=== PATIENT | female | born 1965 | race American Indian/Alaskan Native ===

== ENCOUNTER 2017-02-01 11:25 | Observation (INO) | payer MEDICARE ==
[2017-02-01 12:33] LABS: Basophils % (Auto) 0.4 % (0.0-1.8); Eosinophils % (Auto) 1.5 % (0.0-4.3); Hemoglobin 12.2 gm/dl (10.1-14.3); Mean Corpuscular HGB Conc 31 % (30-34); Mean Corpuscular Volume 76 fl (79-97); Platelet Count 240 K/mm3 (140-440); Red Blood Count 5.17 M/mm3 (3.65-5.03); Red Cell Distribution Width 16.4 % (13.2-15.2); White Blood Count 6.2 K/mm3 (4.5-11.0)
[2017-02-01 12:35] LABS: Mean Corpuscular Hemoglobin 24 pg (28-32)
[2017-02-01 13:02] LABS: Anion Gap 18 mmol/L; Blood Urea Nitrogen 18 mg/dL (7-17); Calcium 9.6 mg/dL (8.4-10.2); Carbon Dioxide 26 mmol/L (22-30); Chloride 100.2 mmol/L (98-107); Glucose 193 mg/dL (65-100); Potassium 4.1 mmol/L (3.6-5.0); Sodium 140 mmol/L (137-145)
[2017-02-01] MEDS ORDERED: ZOFRAN IV ONE ×2 (18:18→19:08)
[2017-02-01] MEDS ORDERED: MORPHINE IV ONE ×2 (18:19→19:08)
[2017-02-01] MEDS ORDERED: BABY ASPIRIN PO ONE (19:25)
--- NOTE | 2017-02-01 19:25 | Emergency Department Report ---
HPI - General Chief Complaint: Chest Pain Time Seen by Provider: 02/01/17 17:55 - HPI HPI: The patient is a 51-year-old female with a history of CHF, who presents for evaluation of chest pain. The patient reports 2 days of constant left-sided chest pain, pressure-like in quality, currently 8/10 in severity. The patient denies fever, neck pain, parasthesias, dyspnea, cough, hemoptysis, palpitations , dizziness, syncope, unilateral leg swelling, calf muscle pain. Patient also denies cocaine or other stimulant use, history of DVT or PE, recent immobilization, or history of cancer. ED Past Medical Hx - Past Medical History Hx Hypertension: Yes Hx CVA: Yes Hx Heart Attack/AMI: Yes Hx Congestive Heart Failure: Yes Hx Diabetes: Yes (I) Hx Arthritis: Yes Hx Seizures: Yes (childhood) Hx Asthma: Yes Hx COPD: No Additional medical history: Anemia. Fibroid Tumor. Obesity - Surgical History Hx Pacemaker: Yes (Defibrillator placed in left chest under skin flap.) Additional Surgical History: x 3, tubal ligation in 1985. Surgery on L.Wrist - 1993. Pacemaker, defibrilator, Hysterectomy and Fibroid removal in 2014 removal. - Social History Smoking Status: Never Smoker Substance Use Type: Alcohol - Medications Home Medications: Home Medications Medication Instructions Recorded Confirmed Last Taken Type Amlodipine Besylate 10 mg PO DAILY 09/16/13 02/01/17 08/11/15 10:46 History Carvedilol 25 mg PO BID 09/16/13 02/01/17 08/09/15 History Clopidogrel Bisulfate [Clopidogrel] 75 mg PO DAILY 09/16/13 02/01/17 08/07/15 History Digoxin 250 mcg PO DAILY 09/16/13 02/01/17 08/09/15 History Furosemide 40 mg PO DAILY 09/16/13 02/01/17 08/09/15 History Lisinopril 40 mg PO DAILY 09/16/13 02/01/17 08/11/15 10:47 History Simvastatin 40 mg PO QHS 09/16/13 02/01/17 08/08/15 History Fluticasone Propionate [Flonase] 16 gm NS QDAY #1 spray.susp 12/23/13 02/01/17 02/17/14 Rx Pantoprazole [Protonix TAB] 20 mg PO QDAY #5 tablet. 01/09/14 02/01/17 2 Weeks Ago Rx Docusate Sodium [Colace CAP] 100 mg PO BID PRN 07/09/15 02/01/17 Unknown History Ezetimibe [Zetia] 10 mg PO QDAY 07/09/15 02/01/17 Unknown History Ferrous Sulfate [Feosol 325 MG tab] 325 mg PO QDAY 07/09/15 02/01/17 Unknown History Gabapentin [Neurontin] 300 mg PO BID 07/09/15 02/01/17 08/09/15 History Potassium Chloride [Klor-Con M10] 20 meq PO QDAY 07/09/15 02/01/17 08/09/15 History metFORMIN [Glucophage] 850 mg PO BID 07/09/15 02/01/17 2 Days Ago History Loratadine [Claritin] 10 mg PO Q48HR 08/11/15 02/01/17 08/07/15 History traMADol [Ultram 50 MG tab] 50 mg PO Q4HR PRN #20 tablet 08/05/16 02/01/17 Unknown Rx traMADol [Ultram 50 MG tab] 50 mg PO Q6HR PRN #20 tablet 08/25/16 02/01/17 Unknown Rx Insulin Glargine,Hum.rec.anlog 40 units SQ QHS 30 Days 12/18/16 02/01/17 Rx [Lantus Solostar] Nitroglycerin [Nitrostat] 0.4 mg SL PRN PRN 30 Days 12/18/16 02/01/17 08/05/15 Rx ED Review of Systems ROS: Stated complaint: CHEST PAIN/RT SIDE HIP PAIN Other details as noted in HPI Constitutional: denies: fever ENT: denies: throat or neck pain Respiratory: denies: cough, shortness of breath Cardiovascular: reports chest pain Endocrine: denies unexplained weight loss or gain Gastrointestinal: denies abdominal pain, nausea Genitourinary: denies: dysuria Musculoskeletal: denies: leg swelling Skin: denies: rash Neurological: denies: headache Hematological/Lymphatic: denies: easy bleeding or easy bruising Psych: denies sadness or hopelessness Physical Exam - Physical Exam Vital Signs: Vital Signs 02/01/17 02/01/17 02/01/17 11:38 16:47 18:20 Temperature 98.9 F 98.6 F Pulse Rate 85 90 82 Respiratory 20 20 16 Rate Blood Pressure 156/97 177/99 Blood Pressure 156/82 [Left] O2 Sat by Pulse 98 95 Oximetry Physical Exam: General: well-nourished, well-developed, no acute distress Head: Normocephalic, atraumatic Eyes: normal sclera ENT: Mucous membranes are pale and dry Neck: No neck stiffness, no cervical adenopathy Respiratory: Breath sounds equal bilaterally, no wheezing, rales, or rhonchi Cardio: S1 and S2 present, no murmurs, rubs, gallops, capillary refill is delayed Abdomen: Normoactive bowel sounds, soft abdomen, no tenderness Chest WALL/Back: No tenderness to palpation of the chest wall, no CVA tenderness with percussion Musc: No pitting edema Skin: No rash Neuro: no facial drooping, normal speech Psych: Normal affect ED Course Vital Signs 02/01/17 02/01/17 02/01/17 11:38 16:47 18:20 Temperature 98.9 F 98.6 F Pulse Rate 85 90 82 Respiratory 20 20 16 Rate Blood Pressure 156/97 177/99 Blood Pressure 156/82 [Left] O2 Sat by Pulse 98 95 Oximetry ED Medical Decision Making - Lab Data Result diagrams: 02/01/17 11:48 02/01/17 11:48 - Medical Decision Making The patient was seen and examined by myself. The patient is placed on a playground monitor and continuous pulse ox. On initial evaluation, the patient was found to be in no distress. EKG was negative for findings suggestive of acute cardiac infarct. The patient is given IV morphine for her pain. Labs and imaging are obtained. Chest x-ray is negative for pneumothorax, focal consolidation, pulmonary vascular congestion, pleural effusion, or other obvious acute cardiopulmonary disease process. Lab results were non-revealing including negative troponin, WBC, hemoglobin, hematocrit, electrolytes, renal function. Medical records are reviewed and revealed that the patient received a stress test positive for mild inferior lateral ischemia recently. The patient was reevaluated and reported that their symptoms were improved. As the patient has chest pain and risk factors for development of acute coronary event, the patient will be admitted for close cardiopulmonary monitoring, serial troponins, and evaluation by cardiology. The physician on-call was contacted. They presented to the emergency department and evaluated the patient. They agreed to admit the patient. The ED admit order was placed. The patient was admitted in guarded condition. Critical care attestation.: If time is entered above; I have spent that time in minutes in the direct care of this critically ill patient, excluding procedure time. ED Disposition Clinical Impression: Acute chest pain Disposition: OP ADMITTED IP TO THIS HOSP Is pt being admited?: Yes Does the pt Need Aspirin: Yes Condition: Stable Instructions: Chest Pain (ED) Referrals: BRIAN GALINDO MD [Primary Care Provider] - 3-5 Days Time of Disposition: 19:24
[2017-02-01] MEDS ORDERED: PROVENTIL IH PRN (23:10)
[2017-02-01] MEDS ORDERED: DULCOLAX PR PRN (23:10)
[2017-02-01] MEDS ORDERED: MILK OF MAGNESIA PO PRN (23:10)
[2017-02-01] MEDS ORDERED: TYLENOL PO PRN (23:10)
[2017-02-01] MEDS ORDERED: D50W (25GM) IV PRN (23:10)
[2017-02-01] MEDS ORDERED: MORPHINE IV PRN (23:10)
[2017-02-01] MEDS ORDERED: ZOFRAN IV PRN (23:10)
--- NOTE | 2017-02-02 00:35 | History and Physical Report ---
History of Present Illness Date of examination: 02/02/17 Date of admission: 02/01/17 23:10 Chief complaint: Constant left-sided nonexertional chest pain for 2 days History of present illness: patient is a 51-year-old AA female with a history of CHF,/ CMP s/p AICD and diabetes on insulin, who presents for evaluation of chest pain. The patient reports 2 days of constant left-sided chest pain, pressure-like in quality, currently 8/10 in severity. It extends to the left side of the neck and nonexertional Denies any palpitations syncope or dizziness or nausea. HEENT is described as stabbing sharp pain followed by dull aching pain. She apparently had a stress thallium by [facility] 5 weeks ago and was found to have mild inferolateral ischemia, but no further workup was done The patient denies fever, neck pain, parasthesias, dyspnea, cough, hemoptysis, palpitations, dizziness, syncope, unilateral leg swelling, calf muscle pain. Patient also denies cocaine or other stimulant use, history of DVT or PE, recent immobilization, or history of cancer. Past History Past Medical History: arthritis, CAD, diabetes, heart failure (status post AICD) , hypertension, hyperlipidemia Past Surgical History: hysterectomy, Other (AICD placement) Social history: no significant social history Family history: no significant family history Medications and Allergies Allergies Allergy/AdvReac Type Severity Reaction Status Date / Time shellfish derived Allergy anaphalyxis Verified 02/18/14 17:45 codeine AdvReac Vomiting Verified 02/18/14 17:45 Home Medications Medication Instructions Recorded Confirmed Last Taken Type Amlodipine Besylate 10 mg PO DAILY 09/16/13 02/01/17 08/11/15 10:46 History Carvedilol 25 mg PO BID 09/16/13 02/01/17 08/09/15 History Clopidogrel Bisulfate [Clopidogrel] 75 mg PO DAILY 09/16/13 02/01/17 08/07/15 History Digoxin 250 mcg PO DAILY 09/16/13 02/01/17 08/09/15 History Furosemide 40 mg PO DAILY 09/16/13 02/01/17 08/09/15 History Lisinopril 40 mg PO DAILY 09/16/13 02/01/17 08/11/15 10:47 History Simvastatin 40 mg PO QHS 1202/01/17 08/08/15 History Fluticasone Propionate [Flonase] 16 gm NS QDAY #1 spray.susp 12/23/13 02/01/17 02/17/14 Rx Pantoprazole [Protonix TAB] 20 mg PO QDAY #5 tablet. 01/09/14 02/01/17 2 Weeks Ago Rx Docusate Sodium [Colace CAP] 100 mg PO BID PRN 07/09/15 02/01/17 Unknown History Ezetimibe [Zetia] 10 mg PO QDAY 07/09/15 02/01/17 Unknown History Ferrous Sulfate [Feosol 325 MG tab] 325 mg PO QDAY 07/09/15 02/01/17 Unknown History Gabapentin [Neurontin] 300 mg PO BID 07/09/15 02/01/17 08/09/15 History Potassium Chloride [Klor-Con M10] 20 meq PO QDAY 07/09/15 02/01/17 08/09/15 History metFORMIN [Glucophage] 850 mg PO BID 07/09/15 02/01/17 2 Days Ago History Loratadine [Claritin] 10 mg PO Q48HR 08/11/15 02/01/17 08/07/15 History traMADol [Ultram 50 MG tab] 50 mg PO Q4HR PRN #20 tablet 08/05/16 02/01/17 Unknown Rx traMADol [Ultram 50 MG tab] 50 mg PO Q6HR PRN #20 tablet 08/25/16 02/01/17 Unknown Rx Insulin Glargine,Hum.rec.anlog 40 units SQ QHS 30 Days 12/18/16 02/01/17 Rx [Lantus Solostar] Nitroglycerin [Nitrostat] 0.4 mg SL PRN PRN 30 Days 12/18/16 02/01/17 08/05/15 Rx Active Meds: Active Medications Acetaminophen (Tylenol) 650 mg PO Q4H PRN PRN Reason: Pain MILD(1-3)/Fever >100.5/[place] Albuterol (Proventil) 2.5 mg IH Q6HRT PRN PRN Reason: Shortness Of Breath Bisacodyl (Dulcolax) 10 mg HI QDAY PRN PRN Reason: Constipation unrelieved by MOM Carvedilol (Coreg) 25 mg PO BID [facility] Clopidogrel Bisulfate (Plavix) 75 mg PO DAILY [facility] Dextrose (D50w (25gm)) 50 ml IV PRN PRN PRN Reason: Hypoglycemia Digoxin (Lanoxin) 0.25 mg PO 1700 [facility] Furosemide (Lasix) 40 mg PO DAILY [facility] Gabapentin (Neurontin) 300 mg PO BID [facility] Heparin Sodium (Porcine) (Heparin) 5,000 unit SUB-Q Q8HR [facility] Insulin Aspart (Novolog) 0 units SUB-Q ACHS [facility] PRN Reason: Protocol Insulin Detemir (Levemir) 25 units SUB-Q QHS [facility] Lisinopril (Zestril) 40 mg PO DAILY [facility] Magnesium Hydroxide (Milk Of Magnesia) 30 ml PO Q4H PRN PRN Reason: Constipation Morphine Sulfate (Morphine) 2 mg IV Q4H PRN PRN Reason: Pain, Moderate (4-6) Ondansetron HCl (Zofran) 4 mg IV Q8H PRN PRN Reason: N/V unrelieved by [place] Pantoprazole Sodium (Protonix) 20 mg PO QDAY [facility] Simvastatin (Zocor) 40 mg PO QHS [facility] Review of Systems Constitutional: no weight loss, no weight gain, no fever, no chills, no weakness Ears, nose, mouth and throat: no ear pain, no ear discharge, no sore throat, no headache Cardiovascular: chest pain (stated above in the history of present illness), no orthopnea, no palpitations, no syncope, no lightheadedness, no shortness of breath Gastrointestinal: nausea, no abdominal pain, no vomiting, no diarrhea, no constipation, no melena Genitourinary Female: dysuria, urinary frequency Menstruation: postmenopausal Rectal: no pain Musculoskeletal: arthritis (in the knee joints), no neck pain, no low back pain Integumentary: no rash Neurological: no head injury, no seizures, no syncope Psychiatric: no anxiety, no depression Endocrine: no polyphagia, no excessive thirst, no polydipsia, no polyuria Exam - Constitutional Vitals: Temp Pulse Resp BP Pulse Ox 98.6 F 69 13 127/74 95 02/01/17 16:47 02/01/17 21:30 02/01/17 21:30 02/01/17 21:30 04/21/17 21:30 General appearance: Present: no acute distress, well-nourished - EENT Eyes: Present: PERRL, EOM intact ENT: hearing intact, clear oral mucosa, no thrush - Neck Neck: Present: supple, normal ROM. Absent: masses or JVD - Respiratory Respiratory effort: normal Respiratory: bilateral: CTA - Cardiovascular Rhythm: regular Heart Sounds: Present: S1 & S2 - Extremities Extremities: No edema - Abdominal General gastrointestinal: Present: soft, non-tender. Absent: hepatomegaly, splenomegaly - Rectal Rectal Exam: deferred - Integumentary Integumentary: Present: clear - Musculoskeletal Musculoskeletal: strength equal bilaterally - Neurologic Neurologic: no focal deficits, moves all extremities Results - Labs CBC & Chem 7: 02/01/17 11:48 02/01/17 11:48 Assessment and Plan - Patient Problems (1) Acute chest pain Current Visit: Yes Status: Acute Plan to address problem: 3 sets of troponin enzymes were negative for [place] EKG showed a heart rate of 79 bpm LVH by voltage criteria with Q in inferior leads Cardiology consult with [facility] was requested (2) CAD (coronary artery disease) Current Visit: No Status: Chronic Qualifiers: Coronary Disease-Associated Artery/Lesion type: C [place] vs. transplanted heart: N Associated angina: A Plan to address problem: Continue beta katherine (3) Cardiomyopathy Current Visit: No Status: Chronic Plan to address problem: Continue CONG inhibitor and diuretic (4) HTN (hypertension), benign Current Visit: No Status: Chronic Plan to address problem: Well-controlled Continue Home medications (5) Hyperlipemia Current Visit: No Status: Chronic Qualifiers: Hyperlipidemia type: H Plan to address problem: Continue statin (6) Type 2 diabetes mellitus Current Visit: No Status: Chronic Qualifiers: Diabetes mellitus complication status: D Diabetes mellitus complication detail: D Diabetic retinopathy severity: D Proliferative retinopathy type: P Diabetes mellitus macular edema: D Diabetes mellitus ferry terminal agent insulin use : D Laterality: L Chronic kidney disease stage: C Plan to address problem: Monitor blood sugars with sliding scale coverage Continue basal insulin but at a reduced dose
[2017-02-02] MEDS: HEPARIN SUB-Q SCH ×2 (05:14→13:25)
[2017-02-02] MEDS ORDERED: NOVOLOG SUB-Q SCH (07:30)
[2017-02-02 08:51] LABS: Bilirubin,Urine NEG (Negative); Blood,Urine NEG (Negative); Ketones,Urine NEG (Negative); Leukocyte Esterase,Urine NEG (Negative); Mucus,Urine FEW /HPF; Nitrite,Urine NEG (Negative); Protein,Urine <15 mg/dL mg/dL (Negative); RBC,Urine < 1.0 /HPF (0.0-6.0); Urobilinogen,Urine < 2.0 mg/dL (<2.0); WBC,Urine < 1.0 /HPF (0.0-6.0)
--- NOTE | 2017-02-02 09:49 | XRay Report ---
Chest 2 views: Compared to 12/17/16. History: Shortness of breath/chest pain. Findings: Cardiomegaly. Trachea is midline. Stable pacemaker. No consolidation, pneumothorax or pleural effusion. Impression: No acute cardiopulmonary findings.
[2017-02-02] MEDS ORDERED: PLAVIX PO SCH (10:00)
[2017-02-02] MEDS ORDERED: LASIX PO SCH (10:00)
[2017-02-02] MEDS ORDERED: NEURONTIN PO SCH (10:00)
[2017-02-02] MEDS ORDERED: PROTONIX PO SCH (10:00)
[2017-02-02] MEDS ORDERED: COREG PO SCH (10:00)
[2017-02-02] MEDS ORDERED: ZESTRIL PO SCH (10:00)
--- NOTE | 2017-02-02 10:09 | Consultation ---
History of Present Illness Consult date: 02/02/17 Requesting physician: EMMA MATHIAS Consult reason: chest pain History of present illness: This is a 51-year-old female with history of nonischemic cardiomyopathy EF 1520%, hypertension, status post AICD, patient has multiple hospital visits in the past. Patient states compliance with medication. Patient states for last 2 days having sharp left-sided chest pain with no radiation and patient shortness of breath has been chronic patient's baseline ER cart classification is 2-3. Patient is able lie down flat in the bed this a.m. Patient states chest pain is improved with anti-inflammatory's. Patient denies any syncope or palpitations. Patient denies any melanoma fever or chills but cough but no sputum production and no fever. Past History Past Medical History: arthritis, CAD, diabetes, heart failure (status post AICD , EF 1520%), hypertension, hyperlipidemia Past Surgical History: hysterectomy, Other (AICD placement) Social history: no significant social history Family history: no significant family history Medications and Allergies Allergies Allergy/AdvReac Type Severity Reaction Status Date / Time shellfish derived Allergy anaphalyxis Verified 02/18/14 17:45 codeine AdvReac Vomiting Verified 02/18/14 17:45 Home Medications Medication Instructions Recorded Confirmed Last Taken Type Amlodipine Besylate 10 mg PO DAILY 09/16/13 02/01/17 08/11/15 10:46 History Carvedilol 25 mg PO BID 09/16/13 02/01/17 08/09/15 History Clopidogrel Bisulfate [Clopidogrel] 75 mg PO DAILY 09/16/13 02/01/17 08/07/15 History Digoxin 250 mcg PO DAILY 09/16/13 02/01/17 08/09/15 History Furosemide 40 mg PO DAILY 09/16/13 02/01/17 08/09/15 History Lisinopril 40 mg PO DAILY 09/16/13 02/01/17 08/11/15 10:47 History Simvastatin 40 mg PO QHS 09/16/13 02/01/17 08/08/15 History Fluticasone Propionate [Flonase] 16 gm NS QDAY #1 spray.susp 12/23/13 02/01/17 02/17/14 Rx Pantoprazole [Protonix TAB] 20 mg PO QDAY #5 tablet. 01/09/14 02/01/17 2 Weeks Ago Rx Docusate Sodium [Colace CAP] 100 mg PO BID PRN 07/09/15 02/01/17 Unknown History Ezetimibe [Zetia] 10 mg PO QDAY 07/09/15 02/01/17 Unknown History Ferrous Sulfate [Feosol 325 MG tab] 325 mg PO QDAY 07/09/15 02/01/17 Unknown History Gabapentin [Neurontin] 300 mg PO BID 07/09/15 02/01/17 08/09/15 History Potassium Chloride [Klor-Con M10] 20 meq PO QDAY 07/09/15 02/01/17 08/09/15 History metFORMIN [Glucophage] 850 mg PO BID 07/09/15 02/01/17 2 Days Ago History Loratadine [Claritin] 10 mg PO Q48HR 08/11/15 02/01/17 08/07/15 History traMADol [Ultram 50 MG tab] 50 mg PO Q4HR PRN #20 tablet 08/05/16 02/01/17 Unknown Rx traMADol [Ultram 50 MG tab] 50 mg PO Q6HR PRN #20 tablet 08/25/16 02/01/17 Unknown Rx Insulin Glargine,Hum.rec.anlog 40 units SQ QHS 30 Days 12/18/16 02/01/17 Rx [Lantus Solostar] Nitroglycerin [Nitrostat] 0.4 mg SL PRN PRN 30 Days 12/18/16 02/01/17 08/05/15 Rx Active Meds: Active Medications Acetaminophen (Tylenol) 650 mg PO Q4H PRN PRN Reason: Pain MILD(1-3)/Fever >100.5/[place] Albuterol (Proventil) 2.5 mg IH Q6HRT PRN PRN Reason: Shortness Of Breath Bisacodyl (Dulcolax) 10 mg MD QDAY PRN PRN Reason: Constipation unrelieved by MOM Carvedilol (Coreg) 25 mg PO BID [facility] Clopidogrel Bisulfate (Plavix) 75 mg PO DAILY [facility] Dextrose (D50w (25gm)) 50 ml IV PRN PRN PRN Reason: Hypoglycemia Digoxin (Lanoxin) 0.25 mg PO 1700 [facility] Furosemide (Lasix) 40 mg PO DAILY [facility] Gabapentin (Neurontin) 300 mg PO BID [facility] Heparin Sodium (Porcine) (Heparin) 5,000 unit SUB-Q Q8HR [facility] Last Admin: 02/02/17 05:14 Dose: 5,000 unit Insulin Aspart (Novolog) 0 units SUB-Q ACHS [facility] PRN Reason: Protocol Insulin Detemir (Levemir) 25 units SUB-Q QHS [facility] Lisinopril (Zestril) 40 mg PO DAILY [facility] Magnesium Hydroxide (Milk Of Magnesia) 30 ml PO Q4H PRN PRN Reason: Constipation Morphine Sulfate (Morphine) 2 mg IV Q4H PRN PRN Reason: Pain, Moderate (4-6) Ondansetron HCl (Zofran) 4 mg IV Q8H PRN PRN Reason: N/V unrelieved by Reglan Pantoprazole Sodium (Protonix) 20 mg PO QDAY [facility] Simvastatin (Zocor) 40 mg PO QHS [facility] Review of Systems All systems: negative (HPI) Physical Examination Vital Signs Temp Pulse Resp BP Pulse Ox 98.9 F 85 20 156/97 98 02/01/17 11:38 02/01/17 11:38 02/01/17 11:38 02/01/17 11:38 02/01/17 11:38 General appearance: no acute distress, well-nourished HEENT: Positive: PERRL, Mucus Membranes Moist Neck: Positive: neck supple, trachea midline Cardiac: Positive: Reg Rate and Rhythm, S1/S2. Negative: Audible Murmur Lungs: Positive: clear to auscultation, Normal Breath Sounds Neuro: Positive: Grossly Intact Abdomen: Positive: Soft, Active Bowel Sounds. Negative: Tender, Distended Female genitourinary: deferred Skin: Positive: Clear Incision: Cardiac Cath Site Musculoskeletal: No Pain, Normal Range of Motion Extremities: Present: normal. Absent: edema Results 02/01/17 11:48 02/01/17 11:48 - Imaging and Cardiology Stress echo: other (12/2016 dilated LV no significant ischemia EF 20%) Echo: report reviewed (severe LV dysfunction EF 1520% mild tricuspid regurgitation with normal RVSP) Cardiac cath: report reviewed (2012 mild luminal guarantees EF 1520%) EKG interpretations - Telemetry EKG Rhythm: Sinus Rhythm (sinus rhythm with nonspecific ST-T's) Assessment and Plan Chest pain possible costochondritis NE ruled out Acute on chronic systolic heart failure compensated Nonischemic cardiomyopathy Morbid obesity Hypertension Hyperlipidemia Recommend continue home medications for systolic heart failure patient is currently compensated negative troponins patient may be discharged from cardiac vascular point of view and follow primary defensive line coach Dr. babcock
--- NOTE | 2017-02-02 10:12 | Discharge Summary ---
Providers - Providers Date of Admission: 02/01/17 23:10 Date of discharge: 02/02/17 Attending physician: KRYSTLE VIEYRA CONSULT: Cardiology Primary care physician: BRIAN GALINDO Hospitalization Reason for admission: chest pain Condition: Stable Pertinent studies: CXR Hospital course: Patient is a 51 year old morbidly obese AAF with chronic systolic heart failure due to nonischemic cardiomyopathy with EF 15-20%, status post AICD placement, HTN, DM, HPL, GERD, who presented with 2 day history of chest pain with no associated symptoms; shortness of breath was at baseline; she had a recent hospitalization with a negative stress test. Acute coronary syndrome was excluded based on EKG, serial cardiac enzymes. Cardiology was consulted and recommended to continue current management of heart failure. 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 Extensively counseled regarding importance of losing weight and lifestyle changes. Discharge diagnosis: 1. Chest pain - likely secondary to costochondritis 2. Acute on chronic systolic heart failure compensated 3. Nonischemic cardiomyopathy 4. Hypertension 5. Diabetes 6. Hyperlipidemia 7. GERD 8. Morbid obesity Disposition: DISCHARGED TO HOME OR SELFCARE Time spent for discharge: 35 min Core Measure Documentation - Palliative Care Palliative Care/ Comfort Measures: Not Applicable - Core Measures Any of the following diagnoses?: heart failure - Heart Failure Discharge Requirements CONG/ARB for LVSD if EF <40%: Yes Beta katherine at discharge: Yes Exam - Physical Exam Narrative exam: Patient seen and examined: - Constitutional Vitals: Temp Pulse Resp BP Pulse Ox 98.8 F 88 18 137/89 94 02/02/17 08:18 02/02/17 08:18 02/02/17 08:18 02/02/17 08:18 02/02/17 05:52 General appearance: Present: no acute distress, obese (morbidly) - EENT Eyes: Present: PERRL, EOM intact. Absent: scleral icterus, conjunctival injection - Neck Neck: Present: supple, normal ROM. Absent: masses or JVD - Respiratory Respiratory effort: normal Respiratory: bilateral: diminished (bibasilar), negative: rhonchi, wheezing - Cardiovascular Rhythm: regular Heart Sounds: Present: S1 & S2. Absent: systolic murmur - Extremities Extremities: no ischemia - Abdominal General gastrointestinal: Present: soft, non-tender, non-distended, normal bowel sounds, other (abd obese, protuberant) - Integumentary Integumentary: Present: warm, dry. Absent: jaundice, rash - Musculoskeletal Musculoskeletal: strength equal bilaterally - Psychiatric Psychiatric: cooperative - Neurologic Neurologic: CNII-XII intact, no focal deficits Plan Activity: advance as tolerated Diet: low cholesterol, low salt, diabetic Additional Instructions: Follow up with [facility] as scheduled Follow up with: BRIAN GALINDO MD [Primary Care Provider] - 3-5 Days Prescriptions: Ibuprofen [Motrin 600 MG tab] 600 mg PO Q8H #10 tablet
[2017-02-02 13:16] VITALS: BP 123/57
[2017-02-02] MEDS ORDERED: LANOXIN PO SCH (17:00)
[2017-02-02] MEDS ORDERED: LEVEMIR SUB-Q SCH (22:00)
[2017-02-02] MEDS ORDERED: ZOCOR PO SCH (22:00)
== END 2017-02-02 14:28 | disposition home or self-care (01) ==
LOC: ED 11:25 → 4A 23:10
PROVIDERS: ADMIT Internal Medicine; ATTEND Internal Medicine
DX: I25.10 Atherosclerotic heart disease of native coronary artery without angina pectoris (principal); I42.9 Cardiomyopathy, unspecified; I10 Essential (primary) hypertension; E78.5 Hyperlipidemia, unspecified; E11.9 Type 2 diabetes mellitus without complications; Z90.710 Acquired absence of both cervix and uterus
CPT/HCPCS: 36415; 71020; 80048; 81001; 81025; 82962; 84484; 85025; 93005; 93010; 96374; 96375; 96376; 99285; G0378; J1644; J2270; J2405

== ENCOUNTER 2017-04-05 09:29 | Emergency (ER) | payer MEDICARE ==
[2017-04-05 10:20] LABS: Basophils % (Auto) 0.8 % (0.0-1.8); Eosinophils % (Auto) 2.6 % (0.0-4.3); Hematocrit 39.2 % (30.3-42.9); Hemoglobin 12.4 gm/dl (10.1-14.3); Mean Corpuscular HGB Conc 32 % (30-34); Mean Corpuscular Volume 76 fl (79-97); Platelet Count 224 K/mm3 (140-440); Red Blood Count 5.19 M/mm3 (3.65-5.03); White Blood Count 5.1 K/mm3 (4.5-11.0)
[2017-04-05 10:39] LABS: Anion Gap 17 mmol/L; BUN/Creatinine Ratio 22.85; Blood Urea Nitrogen 16 mg/dL (7-17); Carbon Dioxide 24 mmol/L (22-30); Chloride 102.6 mmol/L (98-107); Glucose 224 mg/dL (65-100); Potassium 4.7 mmol/L (3.6-5.0); Sodium 139 mmol/L (137-145)
[2017-04-05 10:40] LABS: Mean Corpuscular Hemoglobin 24 pg (28-32)
[2017-04-05] MEDS ORDERED: TORADOL IM ONE (22:26)
--- NOTE | 2017-04-06 00:54 | XRay Report ---
FINAL REPORT EXAM: XR HIP 2-3V LT HISTORY: L hip/buttock pain s/p fall TECHNIQUE: AP view of pelvis and frog-leg lateral view of left hip. PRIORS: None. FINDINGS: Degenerative change in lower lumbar spine. Hip joint spaces maintained. No apparent fracture or dislocation. Soft tissues grossly unremarkable. IMPRESSION: 1. No acute osseous abnormality.
--- NOTE | 2017-04-06 00:57 | XRay Report ---
FINAL REPORT EXAM: XR RIBS UNI W PA CHEST 3 LT HISTORY: left rib pain s/p fall TECHNIQUE: Frontal chest x-ray. 2 views of left ribs. PRIORS: None. FINDINGS: Left subclavian transvenous cardiac device and mild cardiomegaly. Lungs are mildly hypoinflated, with increased interstitial markings centrally. No focal consolidation or apparent pneumothorax. No obvious or displaced left rib fractures. IMPRESSION: 1. Findings which may represent pulmonary venous hypertension. 2. No acute osseous abnormality.
--- NOTE | 2017-04-06 01:18 | Emergency Department Report ---
ED Fall HPI - General Chief Complaint: Chest Pain Stated Complaint: FALL/DEFIBRILLATOR Time Seen by Provider: 04/05/17 22:16 Source: patient, old records reviewed Mode of arrival: Ambulatory Limitations: No Limitations - History of Present Illness Initial Comments: 51-year-old female with a past medical history of multiple chronic conditions presents to the hospital complaining of left-sided chest pain and left hip pain after fall 2 days ago. Patient with an electric chair the grocery store and it tipped over. Patient landed on her left side. Patient felt fine that night but by the next day she is complaining of left-sided rib and buttock pain. Pain is 7/10 in intensity, aching, constant, worse with palpation and movement. Patient has not taken anything for pain. No complaints of shortness of breath , nausea, vomiting, or diaphoresis. - Related Data Home Medications Medication Instructions Recorded Confirmed Last Taken Amlodipine Besylate 10 mg PO DAILY 09/16/13 02/01/17 08/11/15 10:46 Carvedilol 25 mg PO BID 09/16/13 02/01/17 08/09/15 Clopidogrel Bisulfate [Clopidogrel] 75 mg PO DAILY 09/16/13 02/01/17 08/07/15 Digoxin 250 mcg PO DAILY 09/16/13 02/01/17 08/09/15 Furosemide 40 mg PO DAILY 09/16/13 02/01/17 08/09/15 Lisinopril 40 mg PO DAILY 09/16/13 02/01/17 08/11/15 10:47 Simvastatin 40 mg PO QHS 09/16/13 02/01/17 08/08/15 Docusate Sodium [Colace CAP] 100 mg PO BID PRN 07/09/15 02/01/17 Unknown Ezetimibe [Zetia] 10 mg PO QDAY 07/09/15 02/01/17 Unknown Ferrous Sulfate [Feosol 325 MG tab] 325 mg PO QDAY 07/09/15 02/01/17 Unknown Gabapentin [Neurontin] 300 mg PO BID 07/09/15 02/01/17 08/09/15 Potassium Chloride [Klor-Con M10] 20 meq PO QDAY 07/09/15 02/01/17 08/09/15 metFORMIN [Glucophage] 850 mg PO BID 07/09/15 02/01/17 2 Days Ago Loratadine [Claritin] 10 mg PO Q48HR 08/11/15 02/01/17 08/07/15 Previous Rx's Medication Instructions Recorded Last Taken Type Fluticasone Propionate [Flonase] 16 gm NS QDAY #1 spray.susp 12/23/13 02/17/14 Rx Pantoprazole [Protonix TAB] 20 mg PO QDAY #5 tablet. 01/09/14 2 Weeks Ago Rx traMADol [Ultram 50 MG tab] 50 mg PO Q6HR PRN #20 tablet 08/25/16 Unknown Rx Insulin Glargine,Hum.rec.anlog 40 units SQ QHS 30 Days 12/18/16 08/09/15 Rx [Lantus Solostar] Nitroglycerin [Nitrostat] 0.4 mg SL PRN PRN 30 Days 12/18/16 08/05/15 Rx Ibuprofen [Motrin 600 MG tab] 600 mg PO Q8H #10 tablet 02/02/17 Unknown Rx Ibuprofen [Motrin] 800 mg PO Q8HR PRN #30 tablet 04/06/17 Unknown Rx Allergies Allergy/AdvReac Type Severity Reaction Status Date / Time shellfish derived Allergy anaphalyxis Verified 04/05/17 09:47 codeine AdvReac Vomiting Verified 04/05/17 09:47 ED Review of Systems ROS: Stated complaint: FALL/DEFIBRILLATOR Other details as noted in HPI Comment: All other systems reviewed and negative Other: Constitutional: No fevers chills Eyes: No eye pain visual changes ENT: No ear pain or throat pain Neck: Denies pain Respiratory: Denies cough wheezing shortness of breath Cardiovascular: Denies palpitations, syncope GI: Denies abdominal pain, nausea, vomiting, diarrhea : Denies dysuria, urinary frequency, or urgency Musculoskeletal:as per hpi Skin: Denies rash, lesions, erythema Neurologic: Denies headache, numbness, weakness Psychiatric: Denies suicidal ideation, hallucinations ED Past Medical Hx - Past Medical History Previous Medical History?: Yes Hx Hypertension: Yes Hx CVA: Yes Hx Heart Attack/AMI: Yes Hx Congestive Heart Failure: Yes Hx Diabetes: Yes (I) Hx Arthritis: Yes Hx Seizures: Yes (childhood) Hx Asthma: Yes Hx COPD: No Additional medical history: Anemia. Fibroid Tumor. Obesity - Surgical History Hx Pacemaker: Yes (Defibrillator placed in left chest under skin flap.) Additional Surgical History: x 3, tubal ligation in 1985. Surgery on L.Wrist - 1993. Pacemaker, defibrilator, Hysterectomy and Fibroid removal in 2014 removal. - Social History Smoking Status: Never Smoker Substance Use Type: Alcohol - Medications Home Medications: Home Medications Medication Instructions Recorded Confirmed Last Taken Type Amlodipine Besylate 10 mg PO DAILY 09/16/13 02/01/17 08/11/15 10:46 History Carvedilol 25 mg PO BID 09/16/13 02/01/17 08/09/15 History Clopidogrel Bisulfate [Clopidogrel] 75 mg PO DAILY 09/16/13 02/01/17 08/07/15 History Digoxin 250 mcg PO DAILY 09/16/13 02/01/17 08/09/15 History Furosemide 40 mg PO DAILY 09/16/13 02/01/17 08/09/15 History Lisinopril 40 mg PO DAILY 09/16/13 02/01/17 08/11/15 10:47 History Simvastatin 40 mg PO QHS 09/16/13 02/01/17 08/08/15 History Fluticasone Propionate [Flonase] 16 gm NS QDAY #1 spray.susp 12/23/13 02/01/17 02/17/14 Rx Pantoprazole [Protonix TAB] 20 mg PO QDAY #5 tablet. 01/09/14 02/01/17 2 Weeks Ago Rx Docusate Sodium [Colace CAP] 100 mg PO BID PRN 07/09/15 02/01/17 Unknown History Ezetimibe [Zetia] 10 mg PO QDAY 07/09/15 02/01/17 Unknown History Ferrous Sulfate [Feosol 325 MG tab] 325 mg PO QDAY 07/09/15 02/01/17 Unknown History Gabapentin [Neurontin] 300 mg PO BID 07/09/15 02/01/17 08/09/15 History Potassium Chloride [Klor-Con M10] 20 meq PO QDAY 07/09/15 02/01/17 08/09/15 History metFORMIN [Glucophage] 850 mg PO BID 07/09/15 02/01/17 2 Days Ago History Loratadine [Claritin] 10 mg PO Q48HR 10/29/15 04/21/17 10/25/15 History traMADol [Ultram 50 MG tab] 50 mg PO Q6HR PRN #20 tablet 08/25/16 02/01/17 Unknown Rx Insulin Glargine,Hum.rec.anlog 40 units SQ QHS 30 Days 12/18/16 02/01/17 Rx [Lantus Solostar] Nitroglycerin [Nitrostat] 0.4 mg SL PRN PRN 30 Days 12/18/16 02/01/17 08/05/15 Rx Ibuprofen [Motrin 600 MG tab] 600 mg PO Q8H #10 tablet 02/02/17 Unknown Rx Ibuprofen [Motrin] 800 mg PO Q8HR PRN #30 tablet 04/06/17 Unknown Rx ED Physical Exam - General Limitations: No Limitations - Other Other exam information: General: No limitations, patient is alert in no acute distress Head exam: Atraumatic, normocephalic Eyes exam: Normal appearance, pupils equal reactive to light, extraocular movements intact ENT: Moist mucous membrane, normal oropharynx Neck exam: Normal inspection, full range of motion, no meningismus nontender Respiratory exam: Clear to auscultation bilateral, no wheezes, rales, crackles Cardiovascular: Normal rate and rhythm, tenderness to left lateral lower ribs without crepitus or deformity Abdomen: Soft, nondistended, and nontender, with normal bowel sounds, no rebound, or guarding Extremity: Full range of motion normal inspection no deformity, full range of motion of hip without pain, tenderness to left buttock area. Full range of motion of ankles without pain and nontender to palpation Back: Normal Inspection, full range of motion, no tenderness Neurologic: Alert, oriented x3, left facial droop due to previous CVA. 4+ left arm and 4+ left leg strength compared to 5/5 on the right. Sensation intact Psychiatric: normal affect, normal mood Skin: Warm, dry, intact ED Course Vital Signs 04/05/17 09:48 Temperature 98.1 F Pulse Rate 88 Respiratory 18 Rate Blood Pressure 146/95 O2 Sat by Pulse 100 Oximetry - Reevaluation(s) Reevaluation #1: 04/06/17 01:17 Patient given Toradol for pain with improvement. Patient states she can't take any narcotics due to intractable nausea vomiting ED Medical Decision Making - Lab Data Result diagrams: 04/05/17 10:02 04/05/17 10:02 Lab Results 04/05/17 04/05/17 04/05/17 Range/Units 10:02 10:02 13:14 WBC 5.1 (4.5-11.0) K/mm3 RBC 5.19 H (3.65-5.03) M/mm3 Hgb 12.4 (10.1-14.3) gm/dl Hct 39.2 (30.3-42.9) % MCV 76 L (79-97) fl MCH 24 L (28-32) pg MCHC 32 (30-34) % RDW 17.0 H (13.2-15.2) % Plt Count 224 (140-440) K/mm3 Lymph % (Auto) 33.6 (13.4-35.0) % [place] % (Auto) 7.0 (0.0-7.3) % Eos % (Auto) 2.6 (0.0-4.3) % Baso % (Auto) 0.8 (0.0-1.8) % Lymph # 1.7 (1.2-5.4) K/mm3 [place] # 0.4 (0.0-0.8) K/mm3 Eos # 0.1 (0.0-0.4) K/mm3 Baso # 0.0 (0.0-0.1) K/mm3 Seg Neutrophils % 56.0 (40.0-70.0) % Seg Neutrophils # 2.9 (1.8-7.7) K/mm3 Sodium 139 (137-145) mmol/L Potassium 4.7 (3.6-5.0) mmol/L Chloride 102.6 (98-107) mmol/L Carbon Dioxide 24 (22-30) mmol/L Anion Gap 17 mmol/L BUN 16 (7-17) mg/dL Creatinine 0.7 (0.7-1.2) mg/dL Estimated GFR > 60 ml/min BUN/Creatinine Ratio 22.85 % Glucose 224 H (65-100) mg/dL Calcium 9.0 (8.4-10.2) mg/dL Troponin T < 0.010 < 0.010 (0.00-0.029) ng/mL - EKG Data -: EKG Interpreted by Me (sinus rate 82 lateral T inversions LVH Q lead 3) - EKG Data When compared to previous EKG there are: no significant change (compared to ) - Radiology Data Radiology results: report reviewed Left hip x-ray and pelvis: No acute finding Fifth rib series: No acute fracture. Pulmonary venous hypertension - Medical Decision Making Patient had a musculoskeletal pain after fall. Low suspicion for NM since pain is reproducible pain and recent injury. Cardiac enzymes negative 2 EKG unchanged from previous. Discharge on Motrin since this is the only medication patient states she can tolerate. - Differential Diagnosis fracture, contusion, sprain Critical Care Time: No Critical care attestation.: If time is entered above; I have spent that time in minutes in the direct care of this critically ill patient, excluding procedure time. ED Disposition Clinical Impression: Contusion, chest wall, Contusion, buttock Disposition: TO HOME OR SELFCARE Is pt being admited?: No Does the pt Need Aspirin: No Condition: Stable Instructions: Musculoskeletal Pain (ED), Thoracic Pain (ED) Additional Instructions: Take the medications as needed for pain. Follow up with your doctor. Return if symptoms worsen. Prescriptions: Ibuprofen [Motrin] 800 mg PO Q8HR PRN #30 tablet PRN Reason: Pain Referrals: BRIAN GALINOD MD [Primary Care Provider] - 3-5 Days Time of Disposition: 01:22
[2017-04-06 01:54] VITALS: BP 136/83
== END 2017-04-06 01:54 | disposition home or self-care (01) ==
LOC: ED 09:29
DX: S20.219A Contusion of unspecified front wall of thorax, initial encounter (principal); S30.0XXA Contusion of lower back and pelvis, initial encounter; I10 Essential (primary) hypertension; I63.9 Cerebral infarction, unspecified; M19.90 Unspecified osteoarthritis, unspecified site; E10.9 Type 1 diabetes mellitus without complications; D64.9 Anemia, unspecified; E66.9 Obesity, unspecified; Z95.0 Presence of cardiac pacemaker; Z79.4 Long term (current) use of insulin; Z88.5 Allergy status to narcotic agent; Z91.013 Allergy to seafood; W08.XXXA Fall from other furniture, initial encounter; Y93.89 Activity, other specified; Y99.9 Unspecified external cause status; Y92.89 Other specified places as the place of occurrence of the external cause
CPT/HCPCS: 36415; 71101; 73502; 80048; 84484; 85025; 93005; 93010; 96372; 99285; J1885

== ENCOUNTER 2017-04-09 12:43 | Outpatient (CLI) | payer MEDICARE ==
--- NOTE | 2017-04-09 14:17 | Mammography Report ---
BILATERAL MAMMOGRAM with CAD: HISTORY:Cancer screening. Comparison study is dated June 22, 2011. FINDINGS: The breasts are almost entirely fat (<25% glandular). No mass, distortion, suspicious calcification, or skin change is seen. Stable small circumscribed nodules are seen in the left breast. IMPRESSION: Negative mammogram. There is no mammographic evidence of malignancy. RECOMMENDATION: Follow-up per ACS guidelines. BI-RADS CATEGORY: 1 = Negative ACR BI-RADS MAMMOGRAPHIC CODES: 0 = Needs additional imaging evaluation; 1 = Negative; 2 = Benign; 3 = Probably benign; 4 = Suspicious; 5 = Malignant; 6 = Known biopsy-proven malignancy COMMENT: 1. Dense breast tissue, i.e., adenosis, fibrocystic changes, etc., may obscure an underlying neoplasm. 2. Approximately 10% of cancers are not detected with mammography. 3. A negative mammography report should not delay biopsy if a clinically suspicious mass is present. COMMENT: Patient follow-up letters are generated in [facility] ([facility]).
== END 2017-04-09 12:44 | disposition home or self-care (01) ==
LOC: MAMMO 12:43
PROVIDERS: ATTEND Family Medicine
DX: Z12.31 Encounter for screening mammogram for malignant neoplasm of breast (principal); I11.0 Hypertensive heart disease with heart failure; I50.9 Heart failure, unspecified; E78.00 Pure hypercholesterolemia, unspecified; J18.9 Pneumonia, unspecified organism; J45.909 Unspecified asthma, uncomplicated; Z79.899 Other long term (current) drug therapy
CPT/HCPCS: 77067; G0202

== ENCOUNTER 2017-10-23 05:00 | Inpatient (IN) | payer MEDICARE ==
[2017-10-23] MEDS: SUBLIMAZE IV ONE ×2 (05:01→06:11)
[2017-10-23] MEDS ORDERED: PLAVIX PO ONE (05:08)
[2017-10-23] MEDS ORDERED: NITROSTAT SL PRN (05:08)
--- NOTE | 2017-10-23 05:10 | Emergency Department Report ---
ED Chest Pain HPI - General Chief Complaint: Chest Pain Stated Complaint: CODE STEMI Time Seen by Provider: 10/23/17 05:07 Source: patient, EMS (ems notes not available at time of chart dictation), RN notes reviewed, old records reviewed Mode of arrival: Stretcher Limitations: No Limitations - History of Present Illness Initial Comments: This is a 52-year-old female, brought to the hospital by EMS as an out of hospital code STEMI. Patient complains of central and left-sided chest pain that radiates to the back, associated with shortness of breath and generalized weakness. Her pain is constant, and it decreased with fentanyl, nitroglycerin. It radiates to the back. Denies cocaine, denies pulmonary embolus and DVT risk factors. Prehospital EKG was consistent with a STEMI, was transmitted to the on-call fast food shift supervisor, Dr. Etta Dorado Code STEMI was called overhead prior to patient's arrival. Upon arrival to the ER, the patient's repeat EKG was morphologically consistent with a STEMI, andtransmitted to the aforementioned consulting fast food shift supervisor. Dr. Dorado is going to come in and take the patient to the catheterization lab. Request 300 mg of Plavix, 6000 units of heparin. Patient denies hematemesis and bright red blood per rectum. MD Complaint: chest pain -: Gradual Onset: during rest Pain Location: substernal, left chest Pain Radiation: back Quality: tightness Consistency: constant Improves With: nitroglycerin, medication-other Treatments Prior to Arrival: aspirin, nitroglycerin Aspirin use within the Past 7 Days: (1) Yes - Related Data On Oral Contraceptives: No Home Medications Medication Instructions Recorded Confirmed Last Taken Amlodipine Besylate 10 mg PO DAILY 09/16/13 02/01/17 08/11/15 10:46 Carvedilol 25 mg PO BID 09/16/13 02/01/17 08/09/15 Clopidogrel Bisulfate [Clopidogrel] 75 mg PO DAILY 09/16/13 02/01/17 08/07/15 Digoxin 250 mcg PO DAILY 09/16/13 02/01/17 08/09/15 Furosemide 40 mg PO DAILY 09/16/13 02/01/17 08/09/15 Lisinopril 40 mg PO DAILY 09/16/13 02/01/17 08/11/15 10:47 Simvastatin 40 mg PO QHS 09/16/13 02/01/17 08/08/15 Docusate Sodium [Colace CAP] 100 mg PO BID PRN 07/09/15 02/01/17 Unknown Ezetimibe [Zetia] 10 mg PO QDAY 07/09/15 02/01/17 Unknown Ferrous Sulfate [Feosol 325 MG tab] 325 mg PO QDAY 07/09/15 02/01/17 Unknown Gabapentin [Neurontin] 300 mg PO BID 07/09/15 02/01/17 08/09/15 Potassium Chloride [Klor-Con M10] 20 meq PO QDAY 07/09/15 02/01/17 08/09/15 metFORMIN [Glucophage] 850 mg PO BID 07/09/15 02/01/17 2 Days Ago ~08/09/15 Loratadine [Claritin] 10 mg PO Q48HR 08/11/15 02/01/17 08/07/15 Previous Rx's Medication Instructions Recorded Last Taken Type Fluticasone Propionate [Flonase] 16 gm NS QDAY #1 spray.susp 12/23/13 02/17/14 Rx Pantoprazole [Protonix TAB] 20 mg PO QDAY #5 tablet. 01/09/14 2 Weeks Ago Rx ~07/28/15 traMADol [Ultram 50 MG tab] 50 mg PO Q6HR PRN #20 tablet 08/25/16 Unknown Rx Insulin Glargine,Hum.rec.anlog 40 units SQ QHS 30 Days 12/18/16 08/09/15 Rx [Lantus Solostar] Nitroglycerin [Nitrostat] 0.4 mg SL PRN PRN 30 Days 12/18/16 08/05/15 Rx Ibuprofen [Motrin 600 MG tab] 600 mg PO Q8H #10 tablet 02/02/17 Unknown Rx Ibuprofen [Motrin] 800 mg PO Q8HR PRN #30 tablet 04/06/17 Unknown Rx Allergies Allergy/AdvReac Type Severity Reaction Status Date / Time shellfish derived Allergy anaphalyxis Verified 04/05/17 09:47 codeine AdvReac Vomiting Verified 04/05/17 09:47 Heart Score - HEART Score History: Highly suspicious EKG: Significant ST-depression Age: 45-65 Risk factors: > 3 risk factors or hx of atherosclerotic disease ED Review of Systems ROS: Stated complaint: CODE STEMI Other details as noted in HPI ED Past Medical Hx - Past Medical History Hx Hypertension: Yes Hx CVA: Yes Hx Heart Attack/AMI: Yes Hx Congestive Heart Failure: Yes Hx Diabetes: Yes (I) Hx Arthritis: Yes Hx Seizures: Yes (childhood) Hx Asthma: Yes Hx COPD: No Additional medical history: Anemia. Fibroid Tumor. Obesity - Surgical History Hx Pacemaker: Yes (Defibrillator placed in left chest under skin flap.) Additional Surgical History: x 3, tubal ligation in 1985. Surgery on L.Wrist - 1993. Pacemaker, defibrilator, Hysterectomy and Fibroid removal in 2014 removal. - Social History Smoking Status: Never Smoker Substance Use Type: Alcohol - Medications Home Medications: Home Medications Medication Instructions Recorded Confirmed Last Taken Type Amlodipine Besylate 10 mg PO DAILY 09/16/13 02/01/17 08/11/15 10:46 History Carvedilol 25 mg PO BID 09/16/13 02/01/17 08/09/15 History Clopidogrel Bisulfate [Clopidogrel] 75 mg PO DAILY 09/16/13 02/01/17 08/07/15 History Digoxin 250 mcg PO DAILY 09/16/13 02/01/17 08/09/15 History Furosemide 40 mg PO DAILY 09/16/13 02/01/17 08/09/15 History Lisinopril 40 mg PO DAILY 09/16/13 02/01/17 08/11/15 10:47 History Simvastatin 40 mg PO QHS 09/16/13 02/01/17 08/08/15 History Fluticasone Propionate [Flonase] 16 gm NS QDAY #1 spray.susp 12/23/13 02/01/17 02/17/14 Rx Pantoprazole [Protonix TAB] 20 mg PO QDAY #5 tablet. 01/09/14 02/01/17 2 Weeks Ago Rx ~07/28/15 Docusate Sodium [Colace CAP] 100 mg PO BID PRN 07/09/15 02/01/17 Unknown History Ezetimibe [Zetia] 10 mg PO QDAY 07/09/15 02/01/17 Unknown History Ferrous Sulfate [Feosol 325 MG tab] 325 mg PO QDAY 07/09/15 02/01/17 Unknown History Gabapentin [Neurontin] 300 mg PO BID 07/09/15 02/01/1715 History Potassium Chloride [Klor-Con M10] 20 meq PO QDAY 07/09/15 02/01/17 08/09/15 History metFORMIN [Glucophage] 850 mg PO BID 07/09/15 02/01/17 2 Days Ago History ~08/09/15 Loratadine [Claritin] 10 mg PO Q48HR 08/11/15 02/01/17 08/07/15 History traMADol [Ultram 50 MG tab] 50 mg PO Q6HR PRN #20 tablet 08/25/16 02/01/17 Unknown Rx Insulin Glargine,Hum.rec.anlog 40 units SQ QHS 30 Days 12/18/16 02/01/17 Rx [Lantus Solostar] Nitroglycerin [Nitrostat] 0.4 mg SL PRN PRN 30 Days 12/18/16 02/01/17 08/05/15 Rx Ibuprofen [Motrin 600 MG tab] 600 mg PO Q8H #10 tablet 02/02/17 Unknown Rx Ibuprofen [Motrin] 800 mg PO Q8HR PRN #30 tablet 04/06/17 Unknown Rx ED Physical Exam - General Limitations: No Limitations General appearance: alert, in distress, obese - Head Head exam: Present: atraumatic, normocephalic - Eye Eye exam: Present: normal appearance, EOMI - ENT ENT exam: Present: normal exam, normal orophraynx, mucous membranes moist, normal external ear exam - Neck Neck exam: Present: normal inspection, full ROM - Respiratory Respiratory exam: Present: normal lung sounds bilaterally. Absent: respiratory distress - Cardiovascular Cardiovascular Exam: Present: normal rhythm, tachycardia, normal heart sounds. Absent: systolic murmur, diastolic murmur, rubs, gallop - GI/Abdominal GI/Abdominal exam: Present: soft, normal bowel sounds. Absent: distended, tenderness, guarding, rebound, rigid, pulsatile mass - Extremities Exam Extremities exam: Present: normal inspection, full ROM, normal capillary refill. Absent: calf tenderness - Back Exam Back exam: Present: normal inspection, full ROM. Absent: tenderness, CVA tenderness (R), paraspinal tenderness, vertebral tenderness - Neurological Exam Neurological exam: Present: alert, oriented X3, CN II-XII intact, other ( Extraocular movements intact. Tongue midline. No facial droop. Facial sensation intact to light touch in the V1, V2, V3 distribution bilaterally. 5 and 5 strength in 4 extremities.. Sensation is intact to light touch in 4 extremities.). Absent: motor sensory deficit - Psychiatric Psychiatric exam: Present: anxious - Skin Skin exam: Present: warm, dry, intact, normal color. Absent: rash ED Course Vital Signs 10/23/17 10/23/17 10/23/17 05:04 05:12 05:21 Temperature 97.4 F L Pulse Rate 102 H 99 H Respiratory 20 10 L Rate Blood Pressure 126/90 140/92 O2 Sat by Pulse 96 97 Oximetry PEDRO score - Pedro Score Age > 65: (0) No Aspirin use within the Past 7 Days: (1) Yes 3 or more CAD Risk Factors: (1) Yes 2 or more Angina events in past 24 hrs: (0) No Known CAD with more than 50% Stenosis: (0) No Elevated Cardiac Markers: (0) No ST Deviation Greater than 0.5mm: (1) Yes PEDRO Score: 3 ED Medical Decision Making - Lab Data Result diagrams: 10/23/17 05:00 10/23/17 05:00 Vital Signs 10/23/17 10/23/17 10/23/17 05:04 05:12 05:21 Temperature 97.4 F L Pulse Rate 102 H 99 H Respiratory 20 10 L Rate Blood Pressure 126/90 140/92 O2 Sat by Pulse 96 97 Oximetry Lab Results 10/23/17 10/23/17 10/23/17 Range/Units 05:00 05:00 05:00 WBC 5.8 (4.5-11.0) K/mm3 RBC 5.46 H (3.65-5.03) M/mm3 Hgb 13.7 (10.1-14.3) gm/dl Hct 42.6 (30.3-42.9) % MCV 78 L (79-97) fl MCH 25 L (28-32) pg MCHC 32 (30-34) % RDW 16.6 H (13.2-15.2) % Plt Count 227 (140-440) K/mm3 Lymph % (Auto) 33.9 (13.4-35.0) % [place] % (Auto) 6.0 (0.0-7.3) % Eos % (Auto) 2.6 (0.0-4.3) % Baso % (Auto) 0.5 (0.0-1.8) % Lymph # 2.0 (1.2-5.4) K/mm3 [place] # 0.3 (0.0-0.8) K/mm3 Eos # 0.2 (0.0-0.4) K/mm3 Baso # 0.0 (0.0-0.1) K/mm3 Seg Neutrophils % 57.0 (40.0-70.0) % Seg Neutrophils # 3.3 (1.8-7.7) K/mm3 PT 12.3 (12.2-14.9) Sec. INR 0.87 (0.87-1.13) APTT 29.4 (24.2-36.6) Sec. Sodium 138 (137-145) mmol/L Potassium 4.2 (3.6-5.0) mmol/L Chloride 96.4 L (98-107) mmol/L Carbon Dioxide 29 (22-30) mmol/L Anion Gap 17 mmol/L BUN 17 (7-17) mg/dL Creatinine 0.8 (0.7-1.2) mg/dL Estimated GFR > 60 ml/min BUN/Creatinine Ratio 21 % Glucose 316 H (65-100) mg/dL Calcium 9.6 (8.4-10.2) mg/dL Troponin T < 0.010 (0.00-0.029) ng/mL - EKG Data Interpretation: acute [place] - Radiology Data Radiology results: pending, report reviewed, image reviewed X-ray of the chest, interpreted by myself and radiology: No acute disease, cardiomegaly - Differential Diagnosis STEMI, pericarditis Critical care attestation.: If time is entered above; I have spent that time in minutes in the direct care of this critically ill patient, excluding procedure time. ED Disposition Clinical Impression: STEMI (ST elevation myocardial infarction) Qualifiers: Involved coronary artery: unspecified coronary artery Qualified Code(s): I21.3 - ST elevation (STEMI) myocardial infarction of unspecified site Disposition: OP ADMIT IP TO THIS HOSP Is pt being admited?: Yes Condition: Critical
[2017-10-23 05:19] LABS: Basophils % (Auto) 0.5 % (0.0-1.8); Eosinophils # (Auto) 0.2 K/mm3 (0.0-0.4); Eosinophils % (Auto) 2.6 % (0.0-4.3); Hematocrit 42.6 % (30.3-42.9); Hemoglobin 13.7 gm/dl (10.1-14.3); Lymphocytes % (Auto) 33.9 % (13.4-35.0); Mean Corpuscular HGB Conc 32 % (30-34); Mean Corpuscular Volume 78 fl (79-97); Monocytes # (Auto) 0.3 K/mm3 (0.0-0.8); Platelet Count 227 K/mm3 (140-440); Red Blood Count 5.46 M/mm3 (3.65-5.03); Red Cell Distribution Width 16.6 % (13.2-15.2)
[2017-10-23] MEDS ORDERED: ZOFRAN ONE ×2 (05:20→05:45)
[2017-10-23] MEDS ORDERED: ZOFRAN IV ONE (05:21)
[2017-10-23] MEDS: HEPARIN 10,000 UNITS/10 ML IV ONE ×2 (05:22→05:58)
[2017-10-23 05:23] LABS: Mean Corpuscular Hemoglobin 25 pg (28-32)
[2017-10-23 05:30] LABS: BUN/Creatinine Ratio 21; Blood Urea Nitrogen 17 mg/dL (7-17); Calcium 9.6 mg/dL (8.4-10.2); Hemolysis Index 6
[2017-10-23 05:31] LABS: INR 0.87 (0.87-1.13)
[2017-10-23 05:32] LABS: Partial Thromboplastin Time 29.4 Sec. (24.2-36.6)
--- NOTE | 2017-10-23 05:32 | XRay Report ---
FINAL REPORT EXAM: XR CHEST 1V AP HISTORY: cp TECHNIQUE: A portable upright view of the chest was submitted. Comparison is made to the study of 04/05/2017. FINDINGS: The heart is mildly enlarged. The lungs are not overtly congested. There are no localized infiltrates or effusions. There is a pacemaker along the left chest wall with the lead in the right ventricle. The bones and soft tissues otherwise reveal obesity. IMPRESSION: Cardiomegaly. No evidence of congestion or infiltrates.
[2017-10-23] MEDS ORDERED: NITROGLYCERIN SYRINGE 3 ML ONE (05:43)
[2017-10-23] MEDS ORDERED: HEPARIN 10,000 UNITS/10 ML ONE (05:43)
[2017-10-23] MEDS ORDERED: CALAN ONE (05:43)
[2017-10-23] MEDS ORDERED: XYLOCAINE 2% INFILTRATI ONE ×2 (05:43→05:45)
[2017-10-23] MEDS ORDERED: HEPARIN/NS 5000 UNIT/500ML(CATH LAB) 1,000 ML IR ONE (05:43)
[2017-10-23] MEDS ORDERED: BENADRYL ONE (05:44)
[2017-10-23] MEDS ORDERED: SUBLIMAZE ONE (05:45)
[2017-10-23] MEDS ORDERED: VERSED ONE (05:45)
[2017-10-23] MEDS ORDERED: BENADRYL IV ONE (05:48)
[2017-10-23] MEDS ORDERED: NACL 0.9% 1000 ML 1,000 ML ONE ×2 (05:48→10:49)
[2017-10-23] MEDS ORDERED: AGGRASTAT DRIP (12.5 MG/250 ML) 12,500 MCG/250 ML BAG IV ONE (05:56)
[2017-10-23] MEDS ORDERED: VERSED IV ONE (06:11)
[2017-10-23] MEDS ORDERED: LASIX ONE (06:29)
[2017-10-23] MEDS ORDERED: HEPARIN/NS 5000 UNIT/500ML(CATH LAB) 500 ML IR ONE (06:32)
[2017-10-23] MEDS ORDERED: AGGRASTAT DRIP (12.5 MG/250 ML) 12,500 MCG/250 ML BAG IV SCH (07:00)
--- NOTE | 2017-10-23 07:48 | History and Physical Report ---
REASON FOR PRESENTATION: Chest pain. HISTORY OF PRESENT ILLNESS: The patient is a pleasant 52-year-old -Prydeinig female who presents with 1 hour of chest pain. EKG shows anterior ST elevation myocardial infarction. A STEMI protocol was initiated. She complaints of chest pain, nausea, vomiting, shortness of breath, and diaphoresis. She denies any abdominal pain, bleeding, falls, cold or heat intolerance. PAST MEDICAL HISTORY: Questionable history of previous OH, history of cardiomyopathy, defibrillator placement, diabetes, hypertension, hyperlipidemia. ALLERGIES: SHELLFISH allergy. She has been premedicated for left heart catheterization. SOCIAL HISTORY: Nonsmoker, nondrinker. Son is here with her. FAMILY HISTORY: Noncontributory. OUTPATIENT MEDICATIONS: Reviewed. PHYSICAL EXAMINATION: VITAL SIGNS: Blood pressure is 130/70. She is afebrile. Tele reveals sinus rhythm, O2 sats is 98% on 2 liters. HEENT: Sclerae are anicteric. PERRL. NECK: Supple. No mass or JVD. CHEST: Clear to auscultation bilaterally. Good air movement. CARDIOVASCULAR: Regular rhythm S1, S2. ABDOMEN: Soft, nontender, nondistended. Normoactive bowel sounds in 4 quadrants. No mass or bruits. EXTREMITIES: No cyanosis, clubbing, or edema. Good peripheral pulses. SKIN: Intact. No rashes. LABORATORY DATA: EKG shows anterior ST elevation myocardial infarction. Labs are pending. ASSESSMENT: In summary, the patient is a pleasant 52-year-old -Prydeinig female: 1. Acute anterior ST elevation myocardial infarction. A ST-segment elevation myocardial infarction protocol initiated. The patient was loaded with aspirin, heparin and Plavix. 2. Other medical history: Includes diabetes, hypertension, obesity, cardiomyopathy, defibrillator placement. Further plans contingent on heart catheterization results. JOB# [id number]
--- NOTE | 2017-10-23 08:15 | Cardiac Catherization Report ---
INDICATION FOR PROCEDURE: The patient is a pleasant 52-year-old -[place] female who presents here with an hour of chest pain, anterior ST elevation. STEMI protocol initiated. Multiple comorbidities including diabetes, hypertension, cardiomyopathy, defibrillator, obesity, chest pain, diaphoresis, nausea, vomiting. PROCEDURE IN DETAIL: The patient was brought to the quality assurance qa lab technician in urgent fashion given anterior STEMI. The patient was prepped and draped in sterile fashion, 8 mL of 2% lidocaine used to anesthetize the right groin. A standard 6-Wolof sheath was used to cannulate the right common femoral artery via modified Seldinger technique. All exchanges performed to exchange a J-tip guidewire. A JR4 catheter was used to cross the aortic valve under fluoroscopic guidance. Left ventriculography performed in 30 BURNETT projection via hand injections, catheter flushed. Manual pullback performed with continuous pressure monitoring. Catheter used to engage the right coronary. No dampening or ventricularization. Cineangiography performed in all projections. Next, catheter exchanged for an EBU 3.75 guide. Heparin, Plavix, aspirin given. ACT noted to be abnormal, angiography was performed in all projections. DATA: Aortic pressure is 130/70, LV pressure is 130, LVP of 35-40 mmHg. The patient remained in sinus rhythm throughout the procedure. No dysrhythmias. The right coronary is a moderate-sized vessel, courses AV groove, distally bifurcates in the posterior and posterolateral branch. It is a right dominant system. There is moderate small vessel disease distally with a 60% to 70% proximal right posterior descending stenosis. Left main without significant disease, bifurcates left anterior descending and left circumflex. Left circumflex without significant disease. LAD is a moderate-sized vessel, courses anterior intergroove is flush occluded in the mid segment with angiographic characteristics consistent with acute atherothrombosis. At this point, we turned our attention to PCI. A [place] wire used to cross the lesion without difficulty. We used a 2.5 x 12 balloon to predilate the lesion. PEDRO 3 flow is returned. Next use of 2.75 x 15 Xience drug-eluting stent deployed at 10 KERVIN for 20 seconds, excellent result. Intravascular ultrasound was now used multiple passes were made, reveals a well apposed and well expanded stent. Final angiogram reveals excellent result, PEDRO 3 flow, no complications, no dissection. At this point, the patient is clinically somewhat improved, but with a very high ____ cardiomyopathy, anterior ID, dyspnea, I decided to proceed with intraaortic balloon pump placement under fluoroscopic guidance. CONCLUSIONS: 1. Single vessel coronary artery disease, acute atherothrombotic occlusion of the mid LAD in the setting of an acute anterior ST elevation myocardial infarction, status post primary PCI, placement of drug-eluting stent (Xience 2.75 x 15) with excellent final angiographic and ultrasonographic results. 2. No significant nonobstructive disease in the left main and left circumflex. 3. Moderate diffuse small vessel disease in the distal right coronary. 4. Cardiomyopathy. 5. Left ventriculography reveals severe global left ventricular hypokinesis, estimated ejection fraction of 15% to 20% with elevated LVEDP. 6. Successful placement of intraaortic balloon pump. At this point, the patient is clinically improved. Oxygenating well, chest pain-free with a balloon pump in place, on Aggrastat and heparin drip, already loaded with Plavix and aspirin, should be monitored closely in the ICU. Results of the procedure explained to the patient at length. All questions and concerns were addressed. JOB# [id number] ERIC/MAC
[2017-10-23] MEDS ORDERED: HEPARIN 1,000 UNIT in NACL 0.9% 500 ML 500 ML IV SCH (09:15)
[2017-10-23] MEDS ORDERED: BENADRYL PO ONE (10:26)
[2017-10-23] MEDS ORDERED: PEPCID IV ONE (10:27)
[2017-10-23] MEDS ORDERED: PEPCID IV STA (10:43)
--- NOTE | 2017-10-23 10:50 | Event Note ---
Date: 10/23/17 Post-PCI f/u: Pt seen in ICU. Pt w/o any complaints No cp/sob IABP in place - hemodynamically improved neg 2.5L ecg is sig improved. Mild facial swelling is noted. Pt w a h/o dye allergy - she was pre-medicated w iv steroids/H1 and H2 blockers at time of STEMI Also we used low ionic low osmolar dye which carries a sig lower risk of allergic reaction No problems swallowing or sob Will give iv steroids/H1 and H2 blockers again now. Finding are probably c/w mild allergic reaction No evidence of airway compromise at this time. Risk of epi (setting of large ant stemi w severe cm and iabp) likely outweighs the benefit. gentle ivf iv heparin/asa/plavix wean iabp I discussed with the resolution rep and rn - we will watch closely at this point. pt is abreast.
[2017-10-23] MEDS ORDERED: BENADRYL IV STA (10:53)
[2017-10-23] MEDS: DECADRON IV SCH ×3 (11:00→17:15)
[2017-10-23] MEDS: ECOTRIN PO SCH (11:18)
[2017-10-23] MEDS ORDERED: BENADRYL PO STA (11:23)
[2017-10-23 12:46] LABS: Chol/HDL Ratio 4.52 %
[2017-10-23] MEDS ORDERED: MORPHINE IV STA (12:49)
[2017-10-23 13:53] LABS: Alanine Aminotransferase 38 units/L (7-56); Albumin 3.3 g/dL (3.9-5); BUN/Creatinine Ratio 29; Blood Urea Nitrogen 20 mg/dL (7-17); Calcium 9.6 mg/dL (8.4-10.2); Hemolysis Index 8
[2017-10-23] MEDS ORDERED: NACL 0.9% 250ML 250 ML IV ONE (13:58)
--- NOTE | 2017-10-23 16:19 | Consultation ---
History of Present Illness Consult date: 10/23/17 Requesting physician: ELAINE CUETO Reason for consult: other (Critical care management, s/p massive AR with IABP) History of present illness: This is a 52-year-old female, brought to the hospital by EMS as an out of hospital code STEMI. Patient complains of central and left-sided chest pain that radiates to the back, associated with shortness of breath and generalized weakness. Her pain is constant, and it decreased with fentanyl, nitroglycerin. It radiates to the back. Denies cocaine, denies pulmonary embolus and DVT risk factors. Prehospital EKG was consistent with a STEMI, was transmitted to the on-call care coordination manager, Dr. Etta Cueto Code STEMI was called overhead prior to patient's arrival. Upon arrival to the ER, the patient's repeat EKG was morphologically consistent with a STEMI, and transmitted to the aforementioned consulting care coordination manager. s/p PCI to mid LAD, left ventricular hypokinesis with EF 15-20% with IABP with 1 :1 augmentation in the ICU Patient with a history of dye allergy - she was pre-medicated with iv steroids /H1 and H2 blockers at time of STEMI and low ionic low osmolar dye used for cardiac catheterization. Patient was seen and examined. Vitals, labs, medications, chart and imaging reviewed. Discussed in interdisciplinary rounds and at length with Cardiology - Past Medical History Hx Hypertension: Yes Hx CVA: Yes Hx Heart Attack/AMI: Yes Hx Congestive Heart Failure: Yes Hx Diabetes: Yes (I) Hx Arthritis: Yes Hx Seizures: Yes (childhood) Hx Asthma: Yes Hx COPD: No Additional medical history: Anemia. Fibroid Tumor. Obesity with TOYIN on CPAP 14cm H2O at home - Surgical History Hx Pacemaker: Yes (Defibrillator placed in left chest under skin flap.) Additional Surgical History: x 3, tubal ligation in 1985. Surgery on L.Wrist - 1993. Pacemaker, defibrilator, Hysterectomy and Fibroid removal in 2014 removal. - Social History Smoking Status: Never Smoker Substance Use Type: Alcohol Medications and Allergies Allergies Allergy/AdvReac Type Severity Reaction Status Date / Time shellfish derived Allergy anaphalyxis Verified 04/05/17 09:47 codeine AdvReac Vomiting Verified 04/05/17 09:47 Home Medications Medication Instructions Recorded Confirmed Last Taken Type Amlodipine Besylate 10 mg PO DAILY 09/16/13 02/01/17 08/11/15 10:46 History Carvedilol 25 mg PO BID 09/16/13 02/01/17 08/09/15 History Clopidogrel Bisulfate [Clopidogrel] 75 mg PO DAILY 09/16/13 02/01/17 08/07/15 History Digoxin 250 mcg PO DAILY 09/16/13 02/01/17 08/09/15 History Furosemide 40 mg PO DAILY 09/16/13 02/01/17 08/09/15 History Lisinopril 40 mg PO DAILY 09/16/13 02/01/17 08/11/15 10:47 History Simvastatin 40 mg PO QHS 09/16/13 02/01/17 08/08/15 History Fluticasone Propionate [Flonase] 16 gm NS QDAY #1 spray.susp 12/23/13 02/01/17 02/17/14 Rx Pantoprazole [Protonix TAB] 20 mg PO QDAY #5 tablet. 01/09/14 02/01/17 2 Weeks Ago Rx ~07/28/15 Docusate Sodium [Colace CAP] 100 mg PO BID PRN 07/09/15 02/01/17 Unknown History Ezetimibe [Zetia] 10 mg PO QDAY 07/09/15 02/01/17 Unknown History Ferrous Sulfate [Feosol 325 MG tab] 325 mg PO QDAY 07/09/15 02/01/17 Unknown History Gabapentin [Neurontin] 300 mg PO BID 07/09/15 02/01/17 08/09/15 History Potassium Chloride [Klor-Con M10] 20 meq PO QDAY 07/09/15 02/01/17 08/09/15 History metFORMIN [Glucophage] 850 mg PO BID 07/09/15 02/01/17 2 Days Ago History ~08/09/15 Loratadine [Claritin] 10 mg PO Q48HR 08/11/15 02/01/17 08/07/15 History traMADol [Ultram 50 MG tab] 50 mg PO Q6HR PRN #20 tablet 08/25/16 02/01/17 Unknown Rx Insulin Glargine,Hum.rec.anlog 40 units SQ QHS 30 Days 12/18/16 02/01/17 Rx [Lantus Solostar] Nitroglycerin [Nitrostat] 0.4 mg SL PRN PRN 30 Days 12/18/16 02/01/17 08/05/15 Rx Ibuprofen [Motrin 600 MG tab] 600 mg PO Q8H #10 tablet 02/02/17 Unknown Rx Ibuprofen [Motrin] 800 mg PO Q8HR PRN #30 tablet 04/06/17 Unknown Rx Active Meds: Active Medications Aspirin (Ecotrin) 325 mg PO QDAY [facility] Last Admin: 10/23/17 11:18 Dose: 325 mg Clopidogrel Bisulfate (Plavix) 75 mg PO QDAY [facility] Dexamethasone (Decadron) 4 mg IV Q6HR [facility] Stop: 10/23/17 18:01 Last Admin: 10/23/17 13:44 Dose: 4 mg Heparin Sodium (Porcine) 1,000 (unit/ Sodium Chloride) 501 mls @ 0 mls/hr IV DIRECT LENO Sodium Chloride (Nacl 0.9% 1000 Ml) 1,000 mls @ 100 mls/hr IV DIRECT LENO Nitroglycerin (Nitrostat) 0.4 mg SL .Q5MIN PRN PRN Reason: Chest Pain Last Admin: 10/23/17 05:01 Dose: 0.4 mg Review of Systems Constitutional: sweats, fatigue, no weight loss, no weight gain, no fever, no chills Ears, nose, mouth and throat: no ear pain, no ear discharge, no decreased hearing, no nasal congestion Breasts: normal Cardiovascular: chest pain, no orthopnea, no syncope, no lightheadedness, no shortness of breath Respiratory: shortness of breath, sleep apnea, no cough, no cough with sputum, no congestion, no wheezing Gastrointestinal: no abdominal pain, no nausea, no vomiting, no diarrhea, no constipation, no coffee ground emesis Genitourinary Female: no pelvic pain, no flank pain, no dysuria, no stress incontinence, no hot flashes Rectal: no pain, no bleeding, no hemorrhoids Musculoskeletal: no neck stiffness, no shooting arm pain, no low back pain Integumentary: no rash, no pruritis, no redness, no wounds Neurological: no transient paralysis, no weakness, no parathesias, no numbness, no seizures Psychiatric: anxiety, no change in appetite, no depression, no hopelessness Endocrine: no cold intolerance, no heat intolerance, no polyphagia, no excessive thirst, no polydipsia, no polyuria Hematologic/Lymphatic: no easy bruising, no easy bleeding, no lymphadenopathy Allergic/Immunologic: no urticaria, no allergic rhinitis, no wheezing Physical Examination Vital signs: Vital Signs Temp Pulse BP Pulse Ox 97.4 F L 102 H 126/90 96 10/23/17 05:04 10/23/17 05:04 10/23/17 05:04 10/23/17 05:04 General appearance: lethargic (rousable, extreme obesity with some facial edema) Eyes: non-icteric ENT: oropharynx moist Neck: supple, no lymphadenopathy, no JVD, other (short neck) Effort: normal Ascultation: Bilateral: diminished breath sounds, other (no stridor) Cardiovascular: regular rate and rhythm, other (IABP in the right groin) Integumentary: normal Extremities: no cyanosis, pulses normal, edema Musculoskeletal: no deformities non-focal exam, pupils equal and round, other (somnolent but easily roused) affect normal Results - Laboratory Findings CBC and BMP: 10/23/17 05:00 10/23/17 13:25 ABG POC ABG pH 7.334 (7.35-7.45) L 10/23/17 11:15 POC ABG pCO2 55.9 (35-45) H 10/23/17 11:15 POC ABG pO2 107 (80-105) H 10/23/17 11:15 POC ABG HCO3 29.7 10/23/17 11:15 POC ABG Total CO2 31 10/23/17 11:15 POC ABG O2 Sat 98 10/23/17 11:15 PT/INR, D-dimer PT 12.3 Sec. (12.2-14.9) 10/23/17 05:00 INR 0.87 (0.87-1.13) 10/23/17 05:00 Abnormal lab findings: Abnormal Labs 10/23/17 10/23/17 10/23/17 05:00 05:00 05:14 RBC 5.46 H MCV 78 L MCH 25 L RDW 16.6 H Activated Clotting Time POC ABG pH POC ABG pCO2 POC ABG pO2 Sodium Chloride 96.4 L BUN Glucose 316 H POC Glucose 302 H AST Troponin T Albumin Cholesterol LDL Cholesterol Direct 10/23/17 10/23/17 10/23/17 05:57 06:20 08:43 RBC MCV MCH RDW Activated Clotting Time 224 H 285 H POC ABG pH POC ABG pCO2 POC ABG pO2 Sodium Chloride BUN Glucose POC Glucose AST Troponin T 4.830 H* D Albumin Cholesterol 267 H LDL Cholesterol Direct 190 H 10/23/17 10/23/17 10/23/17 11:15 13:25 13:25 RBC MCV MCH RDW Activated Clotting Time POC ABG pH 7.334 L POC ABG pCO2 55.9 H POC ABG pO2 107 H Sodium 136 L Chloride 96.5 L BUN 20 H Glucose 380 H POC Glucose AST 156 H Troponin T 3.870 H* Albumin 3.3 L Cholesterol LDL Cholesterol Direct Assessment and Plan Acute hypercapnic respiratory failure STEMI s/p PCI Cardiomyopathy-LVEF 15-20% with hypokinesis Intraaortic ballon pump-cardiogenic shock Extreme obesity Sleep apnea on CPAP Diabetes mellitus, type 2 poorly controlled HTN -ABG -Supplemental oxygen to keep O2 sats>88% -Continue monitoring with IABP--discussed with cardiology -Cardioprotective measures -CPAP at night and prn -Monitor respiratory status closely -VTE prophylaxis -Lifestyle modifications with weight loss, to be discussed prior to discharge -Accucheck with glycemic control Critical care time in (mins) excluding proc time.: 45 Critical care attestation.: If time is entered above; I have spent that time in minutes in the direct care of this critically ill patient, excluding procedure time.
[2017-10-23] MEDS: NACL 0.9% 1000 ML 1,000 ML IV SCH (16:45)
[2017-10-23 19:35] LABS: Hematocrit 34.9 % (30.3-42.9); Mean Corpuscular HGB Conc 32 % (30-34); Mean Corpuscular Volume 79 fl (79-97); Platelet Count 243 K/mm3 (140-440); Red Cell Distribution Width 16.1 % (13.2-15.2)
[2017-10-23 19:44] LABS: Mean Corpuscular Hemoglobin 25 pg (28-32)
[2017-10-23] MEDS ORDERED: PLAVIX ONE (20:49)
[2017-10-23] MEDS: LEVEMIR SUB-Q SCH (22:00)
[2017-10-24 04:17] LABS: Hematocrit 32.3 % (30.3-42.9); Hemoglobin 10.4 gm/dl (10.1-14.3); Mean Corpuscular HGB Conc 32 % (30-34); Mean Corpuscular Hemoglobin 25 pg (28-32); Mean Corpuscular Volume 78 fl (79-97); Platelet Count 232 K/mm3 (140-440); Red Blood Count 4.17 M/mm3 (3.65-5.03); Red Cell Distribution Width 16.2 % (13.2-15.2)
[2017-10-24 04:40] LABS: Creatine Kinase MB 68.3 ng/mL (0.0-4.0)
[2017-10-24 04:43] LABS: BUN/Creatinine Ratio 36; Blood Urea Nitrogen 25 mg/dL (7-17); Calcium 9.1 mg/dL (8.4-10.2); Hemolysis Index 1
[2017-10-24 05:53] LABS: Basophils % (Manual) 0 % (0.0-1.8); Eosinophils % (Manual) 0 % (0.0-4.3); Total Cells Counted 100
[2017-10-24 05:54] LABS: Hypochromasia 1+
[2017-10-24 05:55] LABS: Platelet Estimate Appe
--- NOTE | 2017-10-24 08:23 | XRay Report ---
AP chest x-ray. History: Post cardiac intervention. Findings: Mild cardiomegaly without congestive changes or focal infiltrates. Cardiac pacemaker is noted. No interval changes since yesterday's study are detected.
[2017-10-24] MEDS: PLAVIX PO SCH (10:34)
[2017-10-24] MEDS: ECOTRIN PO SCH (10:34)
--- NOTE | 2017-10-24 10:41 | Progress Note ---
Assessment and Plan Acute hypercapnic respiratory failure STEMI s/p PCI Cardiomyopathy-LVEF 15-20% with hypokinesis Intraaortic ballon pump-cardiogenic shock Extreme obesity Sleep apnea on CPAP Diabetes mellitus, type 2 poorly controlled HTN - ABG reviewed and hypercapnic (will repeat now) - continue BIPAP qhs (prn daytime use) - continue supplemental oxygen to keep O2 sats>88% - IABP pulled - continue cardioprotective measures - continue to monitor respiratory status closely - VTE prophylaxis ordered - Lifestyle modifications with weight loss, to be discussed prior to discharge - gave 10 units regular insulin IV - continue levemir but adjust dose - OK to transfer to telemetry if OK with cardiology Subjective Date of service: 10/24/17 Principal diagnosis: Acute Hypoxemic Respiratory Failure; STEMI s/p PCI; Cardiomyopathy-LVEF 20% Interval history: Patient is seen today for: Acute Hypoxemic Respiratory Failure; STEMI s/p PCI; Cardiomyopathy-LVEF 15-20% Seen and examined at bedside; 24hour events reviewed; nursing and respiratory care staff consulted; no adverse overnight events reported to me; resting peacefully in bed; no recurrence of chest pains or tightness; No N/V/F/C ; Blood sugars running high and currently > 500 Objective Vital Signs - 12hr 10/23/17 10/23/17 10/24/17 23:21 23:31 00:20 Temperature 98.3 F Pulse Rate 86 Pulse Rate [ 79 Apical] Pulse Rate [ 76 Left Dorsalis Pedis] Pulse Rate [ 76 Right Dorsalis Pedis] Respiratory 19 Rate Blood Pressure 115/66 O2 Sat by Pulse 100 98 Oximetry 10/24/17 10/24/17 10/24/17 02:00 04:00 06:00 Temperature 98.7 F Pulse Rate Pulse Rate [ 81 77 92 H Apical] Pulse Rate [ Left Dorsalis Pedis] Pulse Rate [ 86 89 71 Right Dorsalis Pedis] Respiratory 21 Rate Blood Pressure O2 Sat by Pulse 96 98 94 Oximetry 10/24/17 10/24/17 06:23 08:28 Temperature Pulse Rate Pulse Rate [ Apical] Pulse Rate [ Left Dorsalis Pedis] Pulse Rate [ 88 Right Dorsalis Pedis] Respiratory Rate Blood Pressure O2 Sat by Pulse 97 Oximetry Constitutional: no acute distress, other (somnolent) Eyes: non-icteric ENT: oropharynx moist, other (No goiter) Neck: supple, no lymphadenopathy, no JVD, other (short neck) Effort: normal Ascultation: Bilateral: clear, diminished breath sounds Percussion: Bilateral: not dull Cardiovascular: regular rate and rhythm, other (No rubs or murmurs) Gastrointestinal: normoactive bowel sounds, soft, non-tender, non-distended, other (No palpable HSM) Integumentary: normal Extremities: no cyanosis, no edema, pulses normal, no ischemia or petechiae Neurologic: normal mental status, non-focal exam, pupils equal and round, motor strength normal and, other (somnolent but easily roused) Psychiatric: mood appropriate, affect normal CBC and BMP: 10/24/17 03:15 10/24/17 03:15 ABG, PT/INR, D-dimer: ABG POC ABG pH 7.334 (7.35-7.45) L 10/23/17 11:15 POC ABG pCO2 55.9 (35-45) H 10/23/17 11:15 POC ABG pO2 107 (80-105) H 10/23/17 11:15 POC ABG HCO3 29.7 10/23/17 11:15 POC ABG Total CO2 31 10/23/17 11:15 POC ABG O2 Sat 98 10/23/17 11:15 PT/INR, D-dimer PT 12.3 Sec. (12.2-14.9) 10/23/17 05:00 INR 0.87 (0.87-1.13) 10/23/17 05:00 Abnormal lab findings: Abnormal Labs 10/23/17 10/23/17 10/23/17 05:00 05:00 05:14 WBC RBC 5.46 H MCV 78 L MCH 25 L RDW 16.6 H Seg Neuts % (Manual) Lymphocytes % (Manual) Seg Neutrophils # Man Activated Clotting Time POC ABG pH POC ABG pCO2 POC ABG pO2 Sodium Chloride 96.4 L BUN Glucose 316 H POC Glucose 302 H AST Total Creatine Kinase CK-MB (CK-2) CK-MB (CK-2) Rel Index Troponin T Albumin Cholesterol LDL Cholesterol Direct 10/23/17 10/23/17 10/23/17 05:57 06:20 08:43 WBC RBC MCV MCH RDW Seg Neuts % (Manual) Lymphocytes % (Manual) Seg Neutrophils # Man Activated Clotting Time 224 H 285 H POC ABG pH POC ABG pCO2 POC ABG pO2 Sodium Chloride BUN Glucose POC Glucose AST Total Creatine Kinase CK-MB (CK-2) CK-MB (CK-2) Rel Index Troponin T 4.830 H* D Albumin Cholesterol 267 H LDL Cholesterol Direct 190 H 10/23/17 10/23/17 10/23/17 11:15 13:25 13:25 WBC RBC MCV MCH RDW Seg Neuts % (Manual) Lymphocytes % (Manual) Seg Neutrophils # Man Activated Clotting Time POC ABG pH 7.334 L POC ABG pCO2 55.9 H POC ABG pO2 107 H Sodium 136 L Chloride 96.5 L BUN 20 H Glucose 380 H POC Glucose AST 156 H Total Creatine Kinase CK-MB (CK-2) CK-MB (CK-2) Rel Index Troponin T 3.870 H* Albumin 3.3 L Cholesterol LDL Cholesterol Direct 10/23/17 10/23/17 10/23/17 16:49 18:25 21:39 WBC 11.5 H RBC MCV MCH 25 L RDW 16.1 H Seg Neuts % (Manual) Lymphocytes % (Manual) Seg Neutrophils # Man Activated Clotting Time POC ABG pH POC ABG pCO2 POC ABG pO2 Sodium Chloride BUN Glucose POC Glucose 352 H 414 H AST Total Creatine Kinase CK-MB (CK-2) CK-MB (CK-2) Rel Index Troponin T Albumin Cholesterol LDL Cholesterol Direct 10/24/17 10/24/17 03:15 03:15 WBC 14.0 H RBC MCV 78 L MCH 25 L RDW 16.2 H Seg Neuts % (Manual) 77.0 H Lymphocytes % (Manual) 9.0 L Seg Neutrophils # Man 10.8 H Activated Clotting Time POC ABG pH POC ABG pCO2 POC ABG pO2 Sodium Chloride 97.7 L BUN 25 H Glucose 330 H POC Glucose AST Total Creatine Kinase 670 H CK-MB (CK-2) 68.3 H CK-MB (CK-2) Rel Index 10.1 H Troponin T 2.140 H* D Albumin Cholesterol LDL Cholesterol Direct Chest x-ray: image reviewed (cardiomegaly; left upper chest wall ICD; no new infiltrate) Allied health notes reviewed: nursing
--- NOTE | 2017-10-24 11:13 | Progress Note ---
Assessment and Plan Assessment: S/p Acute anterior STEMI CAD s/p PCI of mid LAD 10/23/2017 Cardiogenic shock - s/p IABP; resolved CMP AICD in situ HTN DM Morbid obesity Plan: Currently stable cardiac status. Tx pt from ICU to telemetry. Possible d/c home in AM. Assessment and plan reviewed with pt at bedside. The patient has been seen in conjunction with Dr. Charles who agrees with the assessment and plan of care. Subjective Date of service: 10/24/17 Principal diagnosis: Acute Hypoxemic Respiratory Failure; STEMI s/p PCI; Cardiomyopathy-LVEF 20% Interval history: pt resting comfortably in bed, no current complaints. VSS. Facial swelling improved. Right groin LHC site c/d/i with no evidence of bleeding. Objective Last Vital Signs Temp 98.7 F 10/24/17 04:00 Pulse 88 10/24/17 06:23 Resp 21 10/24/17 04:00 BP 115/66 10/23/17 23:21 Pulse Ox 97 10/24/17 08:28 - Physical Examination General: No Apparent Distress HEENT: Positive: PERRL Neck: Positive: neck supple, trachea midline Cardiac: Positive: Reg Rate and Rhythm, S1/S2 Lungs: Positive: clear to auscultation Neuro: Positive: Grossly Intact, Cranial Nerve 2-12 Intact Abdomen: Positive: Soft. Negative: Tender Skin: Positive: Clear. Negative: Rash, Wound Incision: Cardiac Cath Site (right groin ) Musculoskeletal: No Fluid Collection, No Pain, Normal Range of Motion Extremities: Absent: edema - Labs and Meds Cardiac Enzymes 10/23/17 10/24/17 Range/Units 13:25 03:15 AST 156 H (5-40) units/L CK-MB (CK-2) 68.3 H (0.0-4.0) ng/mL Lipids 10/23/17 Range/Units 08:43 Triglycerides 94 (2-149) mg/dL Cholesterol 267 H (50-199) mg/dL HDL Cholesterol 59 (40-59) mg/dL Cholesterol/HDL Ratio 4.52 % CBC 10/23/17 10/24/17 Range/Units 18:25 03:15 WBC 11.5 H 14.0 H (4.5-11.0) K/mm3 RBC 4.40 4.17 (3.65-5.03) M/mm3 Hgb 11.0 10.4 (10.1-14.3) gm/dl Hct 34.9 D 32.3 (30.3-42.9) % Plt Count 243 232 (140-440) K/mm3 Comprehensive Metabolic Panel 10/23/17 10/24/17 Range/Units 13:25 03:15 Sodium 136 L 140 (137-145) mmol/L Potassium 4.8 4.5 (3.6-5.0) mmol/L Chloride 96.5 L 97.7 L (98-107) mmol/L Carbon Dioxide 26 26 (22-30) mmol/L BUN 20 H 25 H (7-17) mg/dL Creatinine 0.7 0.7 (0.7-1.2) mg/dL Glucose 380 H 330 H (65-100) mg/dL Calcium 9.6 9.1 (8.4-10.2) mg/dL AST 156 H (5-40) units/L ALT 38 (7-56) units/L Alkaline Phosphatase 57 (35-129) units/L Total Protein 6.9 (6.3-8.2) g/dL Albumin 3.3 L (3.9-5) g/dL - Imaging and Cardiology EKG: report reviewed, image reviewed Echo: report reviewed (EF 10-15%, LV mild to mod dilated, impaired relaxation, pacemaker wire in RV. ) Cardiac cath: report reviewed (PCI of mid LAD) - Telemetry EKG Rhythm: Sinus Rhythm
--- NOTE | 2017-10-24 11:49 | Event Note ---
Date: 10/24/17 Asked to reevaluate patient before transferring to telemetry. EKG shows persistent ST elevation in lateral pre cardial leads.No chest pian is noted. Request Hospitalist to take care DM and other medical problems. .
[2017-10-24] MEDS ORDERED: VASELINE TP PRN (13:02)
[2017-10-24] MEDS: PEPCID PO SCH (13:56)
[2017-10-24] MEDS: NACL 0.9% 1000 ML 1,000 ML IV SCH (17:34)
--- NOTE | 2017-10-24 21:39 | History and Physical Report ---
History of Present Illness Date of examination: 10/24/17 Date of admission: 10/23/17 07:14 Chief complaint: See dictated H/p in reports History of present illness: See dictated H/p in reports Medications and Allergies Allergies Allergy/AdvReac Type Severity Reaction Status Date / Time shellfish derived Allergy anaphalyxis Verified 04/05/17 09:47 codeine AdvReac Vomiting Verified 04/05/17 09:47 Home Medications Medication Instructions Recorded Confirmed Last Taken Type Amlodipine Besylate 10 mg PO DAILY 09/16/13 10/24/17 08/11/15 10:46 History Carvedilol 25 mg PO BID 09/16/13 10/24/17 08/09/15 History Furosemide 40 mg PO DAILY 09/16/13 10/24/17 08/09/15 History Pantoprazole [Protonix TAB] 20 mg PO QDAY #5 tablet. 01/09/14 10/24/17 2 Weeks Ago Rx ~07/28/15 Amoxicillin [Trimox CAP] 500 mg PO TID 10/24/17 10/24/17 Unknown History Canagliflozin [Invokana] 100 mg PO DAILY 10/24/17 10/24/17 Unknown History Estradiol [Estrace] 42.5 gm VG HS 10/24/17 10/24/17 Unknown History ISOSORBIDE MONOnitrate [Imdur ER] 30 mg PO QAM 10/24/17 10/24/17 Unknown History Ibuprofen [Motrin 600 MG tab] 600 mg PO TID 10/24/17 10/24/17 Unknown History Insulin Glargine,Hum.rec.anlog 55 units SQ QHS 10/24/17 10/24/17 Unknown History [Lantus Solostar] Lovastatin [Altoprev] 40 mg PO DAILY 10/24/17 10/24/17 Unknown History Nitroglycerin 0.4 mg SL DAILY PRN 10/24/17 10/24/17 Unknown History Potassium Chloride [Klor-Con M20] 20 meq PO DAILY 10/24/17 10/24/17 Unknown History Pregabalin [Lyrica] 75 mg PO BID 10/24/17 10/24/17 Unknown History metFORMIN [Glucophage] 500 mg PO BID 10/24/17 10/24/17 Unknown History Active Meds: Active Medications Aspirin (Ecotrin) 325 mg PO QDAY [facility] Last Admin: 10/24/17 10:34 Dose: 325 mg Atorvastatin Calcium (Lipitor) 80 mg PO QHS [facility] Carvedilol (Coreg) 6.25 mg PO BID [facility] Clopidogrel Bisulfate (Plavix) 75 mg PO QDAY [facility] Last Admin: 10/24/17 10:34 Dose: 75 mg Famotidine (Pepcid) 20 mg PO DAILY [facility] Last Admin: 10/24/17 13:56 Dose: 20 mg Hydrophilic Ointment (Vaseline) 1 applic TP PRN PRN PRN Reason: Skin Irritation Sodium Chloride (Nacl 0.9% 1000 Ml) 1,000 mls @ 100 mls/hr IV DIRECT [facility] Last Admin: 10/24/17 17:34 Dose: 100 mls/hr Insulin Detemir (Levemir) 10 units SUB-Q QHS [facility] Last Admin: 10/23/17 22:00 Dose: 10 units Insulin Human Regular (Novolin R) 0 units SUB-Q ACHS [facility] PRN Reason: Protocol Last Admin: 10/24/17 17:33 Dose: 8 units Nitroglycerin (Nitrostat) 0.4 mg SL .Q5MIN PRN PRN Reason: Chest Pain Last Admin: 10/23/17 05:01 Dose: 0.4 mg Exam - Constitutional Vitals: Temp Pulse Resp BP Pulse Ox 98.0 F 85 18 98/55 99 10/24/17 19:21 10/24/17 19:21 10/24/17 19:21 10/24/17 19:21 10/24/17 19:21 Results - Labs CBC & Chem 7: 10/25/17 04:35 10/24/17 03:15 Labs: Laboratory Last Values WBC 14.0 K/mm3 (4.5-11.0) H 10/24/17 03:15 RBC 4.17 M/mm3 (3.65-5.03) 10/24/17 03:15 Hgb 10.4 gm/dl (10.1-14.3) 10/24/17 03:15 Hct 32.3 % (30.3-42.9) 10/24/17 03:15 MCV 78 fl (79-97) L 10/24/17 03:15 MCH 25 pg (28-32) L 10/24/17 03:15 MCHC 32 % (30-34) 10/24/17 03:15 RDW 16.2 % (13.2-15.2) H 10/24/17 03:15 Plt Count 232 K/mm3 (140-440) 10/24/17 03:15 Lymph % (Auto) 33.9 % (13.4-35.0) 10/23/17 05:00 [place] % (Auto) 6.0 % (0.0-7.3) 10/23/17 05:00 Eos % (Auto) 2.6 % (0.0-4.3) 10/23/17 05:00 Baso % (Auto) 0.5 % (0.0-1.8) 10/23/17 05:00 Lymph # 2.0 K/mm3 (1.2-5.4) 10/23/17 05:00 [place] # 0.3 K/mm3 (0.0-0.8) 10/23/17 05:00 Eos # 0.2 K/mm3 (0.0-0.4) 10/23/17 05:00 Baso # 0.0 K/mm3 (0.0-0.1) 10/23/17 05:00 Add Manual Diff Complete 10/24/17 03:15 Total Counted 100 10/24/17 03:15 Seg Neutrophils % Freight Flow Sales Leader 10/24/17 03:15 Seg Neuts % (Manual) 77.0 % (40.0-70.0) H 10/24/17 03:15 Band Neutrophils % 7.0 % 10/24/17 03:15 Lymphocytes % (Manual) 9.0 % (13.4-35.0) L 10/24/17 03:15 Reactive Lymphs % (Man) 0 % 10/24/17 03:15 Monocytes % (Manual) 5.0 % (0.0-7.3) 10/24/17 03:15 Eosinophils % (Manual) 0 % (0.0-4.3) 10/24/17 03:15 Basophils % (Manual) 0 % (0.0-1.8) 10/24/17 03:15 Metamyelocytes % 2.0 % 10/24/17 03:15 Myelocytes % 0 % 10/24/17 03:15 Promyelocytes % 0 % 10/24/17 03:15 Blast Cells % 0 % 10/24/17 03:15 Nucleated RBC % Not Reportable 10/24/17 03:15 Seg Neutrophils # 3.3 K/mm3 (1.8-7.7) 10/23/17 05:00 Seg Neutrophils # Man 10.8 K/mm3 (1.8-7.7) H 10/24/17 03:15 Band Neutrophils # 1.0 K/mm3 10/24/17 03:15 Lymphocytes # (Manual) 1.3 K/mm3 (1.2-5.4) 10/24/17 03:15 Abs React Lymphs (Man) 0.0 K/mm3 10/24/17 03:15 Monocytes # (Manual) 0.7 K/mm3 (0.0-0.8) 10/24/17 03:15 Eosinophils # (Manual) 0.0 K/mm3 (0.0-0.4) 10/24/17 03:15 Basophils # (Manual) 0.0 K/mm3 (0.0-0.1) 10/24/17 03:15 Metamyelocytes # 0.3 K/mm3 10/24/17 03:15 Myelocytes # 0.0 K/mm3 10/24/17 03:15 Promyelocytes # 0.0 K/mm3 10/24/17 03:15 Blast Cells # 0.0 K/mm3 10/24/17 03:15 WBC Morphology Not Reportable 10/24/17 03:15 Hypersegmented Neuts Not Reportable 10/24/17 03:15 Hyposegmented Neuts Not Reportable 10/24/17 03:15 Hypogranular Neuts Not Reportable 10/24/17 03:15 Smudge Cells Not Reportable 10/24/17 03:15 Toxic Granulation Not Reportable 10/24/17 03:15 Toxic Vacuolation Not Reportable 10/24/17 03:15 Dohle Bodies Not Reportable 10/24/17 03:15 Pelger-Huet Anomaly Not Reportable 10/24/17 03:15 Aroldo Rods Not Reportable 10/24/17 03:15 Platelet Estimate Appe 10/24/17 03:15 Clumped Platelets Not Reportable 10/24/17 03:15 Plt Clumps, EDTA Not Reportable 10/24/17 03:15 Large Platelets Not Reportable 10/24/17 03:15 Giant Platelets Not Reportable 10/24/17 03:15 Platelet Satelliting Not Reportable 10/24/17 03:15 Plt Morphology Comment Not Reportable 10/24/17 03:15 RBC Morphology Not Reportable 10/24/17 03:15 Dimorphic RBCs Not Reportable 10/24/17 03:15 Polychromasia Not Reportable 10/24/17 03:15 Hypochromasia 1+ 10/24/17 03:15 Poikilocytosis Not Reportable 10/24/17 03:15 Anisocytosis Not Reportable 10/24/17 03:15 Microcytosis Not Reportable 10/24/17 03:15 Macrocytosis Not Reportable 10/24/17 03:15 Spherocytes Not Reportable 10/24/17 03:15 Pappenheimer Bodies Not Reportable 10/24/17 03:15 Sickle Cells Not Reportable 10/24/17 03:15 Target Cells Not Reportable 10/24/17 03:15 Tear Drop Cells Not Reportable 10/24/17 03:15 Ovalocytes Not Reportable 10/24/17 03:15 Helmet Cells Not Reportable 10/24/17 03:15 [place] Bodies Not Reportable 10/24/17 03:15 [place] Rings Not Reportable 10/24/17 03:15 [place] Cells Not Reportable 10/24/17 03:15 Bite Cells Not Reportable 10/24/17 03:15 Crenated Cell Not Reportable 10/24/17 03:15 Elliptocytes Not Reportable 10/24/17 03:15 Acanthocytes (Spur) Not Reportable 10/24/17 03:15 Rouleaux Not Reportable 10/24/17 03:15 Hemoglobin C Crystals Not Reportable 10/24/17 03:15 Schistocytes Not Reportable 10/24/17 03:15 Malaria parasites Not Reportable 10/24/17 03:15 Andrea Bodies Not Reportable 10/24/17 03:15 Hem Pathologist Commnt No 10/24/17 03:15 PT 12.3 Sec. (12.2-14.9) 10/23/17 05:00 INR 0.87 (0.87-1.13) 10/23/17 05:00 APTT 29.4 Sec. (24.2-36.6) 10/23/17 05:00 Activated Clotting Time 285 (74-137) H 10/23/17 06:20 POC ABG pH 7.359 (7.35-7.45) 10/24/17 17:52 POC ABG pCO2 50.4 (35-45) H 10/24/17 17:52 POC ABG pO2 116 (80-105) H 10/24/17 17:52 POC ABG HCO3 28.4 10/24/17 17:52 POC ABG Total CO2 30 10/24/17 17:52 POC ABG O2 Sat 98 10/24/17 17:52 POC ABG Base Excess 3 10/24/17 17:52 FiO2 2.5 % 10/24/17 17:52 Sodium 140 mmol/L (137-145) 10/24/17 03:15 Potassium 4.5 mmol/L (3.6-5.0) 10/24/17 03:15 Chloride 97.7 mmol/L (98-107) L 10/24/17 03:15 Carbon Dioxide 26 mmol/L (22-30) 10/24/17 03:15 Anion Gap 21 mmol/L 10/24/17 03:15 BUN 25 mg/dL (7-17) H 10/24/17 03:15 Creatinine 0.7 mg/dL (0.7-1.2) 10/24/17 03:15 Estimated GFR > 60 ml/min 10/24/17 03:15 BUN/Creatinine Ratio 36 % 10/24/17 03:15 Glucose 330 mg/dL (65-100) H 10/24/17 03:15 POC Glucose 396 (70-105) H 10/24/17 20:59 Calcium 9.1 mg/dL (8.4-10.2) 10/24/17 03:15 Total Bilirubin 0.20 mg/dL (0.1-1.2) 10/23/17 13:25 AST 156 units/L (5-40) H 10/23/17 13:25 ALT 38 units/L (7-56) 10/23/17 13:25 Alkaline Phosphatase 57 units/L (35-129) 10/23/17 13:25 Total Creatine Kinase 670 units/L (30-135) H 10/24/17 03:15 CK-MB (CK-2) 68.3 ng/mL (0.0-4.0) H 10/24/17 03:15 CK-MB (CK-2) Rel Index 10.1 (0-4) H 10/24/17 03:15 Troponin T 2.140 ng/mL (0.00-0.029) H* D 10/24/17 03:15 Total Protein 6.9 g/dL (6.3-8.2) 10/23/17 13:25 Albumin 3.3 g/dL (3.9-5) L 10/23/17 13:25 Albumin/Globulin Ratio 0.9 % 10/23/17 13:25 Triglycerides 94 mg/dL (2-149) 10/23/17 08:43 Cholesterol 267 mg/dL (50-199) H 10/23/17 08:43 LDL Cholesterol Direct 190 mg/dL (50-130) H 10/23/17 08:43 HDL Cholesterol 59 mg/dL (40-59) 10/23/17 08:43 Cholesterol/HDL Ratio 4.52 % 10/23/17 08:43
[2017-10-24] MEDS: COREG PO SCH (22:03)
[2017-10-24] MEDS: NOVOLOG SUB-Q SCH (22:50)
[2017-10-24] MEDS: LEVEMIR SUB-Q SCH (23:00)
[2017-10-25] MEDS ORDERED: NITROSTAT SL PRN (08:03)
--- NOTE | 2017-10-25 08:48 | History and Physical Report ---
CHIEF COMPLAINT: Left-sided chest pain for a couple of hours. HISTORY OF PRESENT ILLNESS: A 52-year-old female with a history of insulin-dependent diabetes and hypertension and cerebrovascular accident in the past, obesity, and seizures, comes in for severe left-sided chest pain. Pain is about 10/10. A code STEMI was called. She came by EMS. Pain radiating to the back. Preoperative EKG was consistent with STEMI and sheriffs was called. Repeat EKG in the ER also was consistent with STEMI. The patient was given 300 mg of Plavix and 6000 units of heparin. Slight shortness of breath present, but otherwise no orthopnea. No exacerbating or relieving factors. PAST MEDICAL HISTORY: Significant for hypertension, coronary artery disease, congestive heart failure, hyperlipidemia, and type 2 diabetes. CURRENT MEDICATIONS: Amlodipine 10 mg once a day, carvedilol 25 mg once a day, Plavix 75 mg once a day, digoxin 0.25 mg once a day, furosemide 40 mg once a day, lisinopril 40 mg once a day, simvastatin 40 mg once a day, Zetia 10 mg once a day, gabapentin, Neurontin 300 mg twice a day, metformin 850 mg twice a day. Lantus 40 units subcutaneous at bedtime was given in the past. REVIEW OF SYSTEMS: Significant for recurrent chest pain. Slight shortness of breath. Otherwise, review of systems negative. A 14-point review of systems done. PHYSICAL EXAMINATION: GENERAL: Middle-aged female, obese. VITAL SIGNS: Blood pressure is 109/62, temperature is 98.3, pulse is 74, respirations are 16. HEENT: Unremarkable. Pupils are equal and reactive. NECK: Supple, no lymphadenopathy, no thyromegaly. LUNGS: Clear to auscultation and percussion. Good air entry. CARDIOVASCULAR: S1, S2 heard. No gallop, no murmur, no rub. Apical impulse in left fifth intercostal space and midclavicular line. ABDOMEN: Soft and benign. No hepatosplenomegaly. No guarding, no rigidity. Hernial orifices are normal. EXTREMITIES: Good pedal pulses. No pedal edema. IMAGING: EKG consistent with ST elevation [place]. Chest x-ray was normal. LABORATORY DATA: Significant for a high troponin level of 2.140. Cardiac CK was 670 and CK-MB was 68.3 and relative index is 7.1% consistent with STEMI. ASSESSMENT AND PLAN: 1. STEMI. The patient had PCI. Continue Plavix. 2. Insulin-dependent diabetes. Resume Invokana, metformin and Lantus insulin. 3. Hypertension. Continue antihypertensives. Cardiomyopathy with ejection fraction of 20%. Continue Lasix as recommended. 4. Deep venous thrombosis prophylaxis, Lovenox 40 mg subcutaneous daily. We will coordinate report of the discharge. JOB# [id number] KEO/NTS
[2017-10-25] MEDS ORDERED: NON-FORMULARY (Lovastatin [Altoprev] 40 MG) PO SCH (10:00)
[2017-10-25] MEDS ORDERED: COREG PO SCH (10:00)
[2017-10-25] MEDS ORDERED: NON-FORMULARY (Canagliflozin [Invokana] 100 MG) PO SCH (10:00)
--- NOTE | 2017-10-25 10:09 | Progress Note ---
Assessment and Plan Assessment and plan: Acute STEMI. Patient is status post PCI. Continue medications. Cardiology following. Diabetes mellitus type 2, insulin-dependent. Resume Invokana, metformin and lantus home regimens Hypertension. Continue antihypertensive medications. Cardiomyopathy. EF of 20%. Continue Lasix per cardiology. DVT. Continue Lovenox daily. History Interval history: No new issues overnight Hospitalist Physical - Constitutional Vitals: Temp Pulse Resp BP Pulse Ox 98.0 F 80 20 119/66 95 10/25/17 08:21 10/25/17 08:21 10/25/17 08:21 10/25/17 08:21 10/25/17 08:21 General appearance: Present: no acute distress, well-nourished - EENT Eyes: Present: PERRL, EOM intact ENT: hearing intact, clear oral mucosa, dentition normal - Neck Neck: Present: supple, normal ROM - Respiratory Respiratory effort: normal Respiratory: bilateral: CTA - Cardiovascular Rhythm: regular Heart Sounds: Present: S1 & S2. Absent: gallop, rub - Extremities Extremities: no ischemia, No edema, Full ROM - Abdominal General gastrointestinal: soft, non-tender, non-distended, normal bowel sounds - Integumentary Integumentary: Present: clear, warm, dry - Neurologic Neurologic: CNII-XII intact, moves all extremities Results - Labs CBC & Chem 7: 10/25/17 04:35 10/24/17 03:15 Labs: Laboratory Last Values WBC 14.0 K/mm3 (4.5-11.0) H 10/24/17 03:15 RBC 4.17 M/mm3 (3.65-5.03) 10/24/17 03:15 Hgb 10.4 gm/dl (10.1-14.3) 10/24/17 03:15 Hct 32.3 % (30.3-42.9) 10/24/17 03:15 MCV 78 fl (79-97) L 10/24/17 03:15 MCH 25 pg (28-32) L 10/24/17 03:15 MCHC 32 % (30-34) 10/24/17 03:15 RDW 16.2 % (13.2-15.2) H 10/24/17 03:15 Plt Count 205 K/mm3 (140-440) 10/25/17 04:35 Lymph % (Auto) 33.9 % (13.4-35.0) 10/23/17 05:00 [place] % (Auto) 6.0 % (0.0-7.3) 10/23/17 05:00 Eos % (Auto) 2.6 % (0.0-4.3) 10/23/17 05:00 Baso % (Auto) 0.5 % (0.0-1.8) 10/23/17 05:00 Lymph # 2.0 K/mm3 (1.2-5.4) 10/23/17 05:00 [place] # 0.3 K/mm3 (0.0-0.8) 10/23/17 05:00 Eos # 0.2 K/mm3 (0.0-0.4) 10/23/17 05:00 Baso # 0.0 K/mm3 (0.0-0.1) 10/23/17 05:00 Add Manual Diff Complete 10/24/17 03:15 Total Counted 100 10/24/17 03:15 Seg Neutrophils % Risk And Insurance Consultant 10/24/17 03:15 Seg Neuts % (Manual) 77.0 % (40.0-70.0) H 10/24/17 03:15 Band Neutrophils % 7.0 % 10/24/17 03:15 Lymphocytes % (Manual) 9.0 % (13.4-35.0) L 10/24/17 03:15 Reactive Lymphs % (Man) 0 % 10/24/17 03:15 Monocytes % (Manual) 5.0 % (0.0-7.3) 10/24/17 03:15 Eosinophils % (Manual) 0 % (0.0-4.3) 10/24/17 03:15 Basophils % (Manual) 0 % (0.0-1.8) 10/24/17 03:15 Metamyelocytes % 2.0 % 10/24/17 03:15 Myelocytes % 0 % 10/24/17 03:15 Promyelocytes % 0 % 10/24/17 03:15 Blast Cells % 0 % 10/24/17 03:15 Nucleated RBC % Not Reportable 10/24/17 03:15 Seg Neutrophils # 3.3 K/mm3 (1.8-7.7) 10/23/17 05:00 Seg Neutrophils # Man 10.8 K/mm3 (1.8-7.7) H 10/24/17 03:15 Band Neutrophils # 1.0 K/mm3 10/24/17 03:15 Lymphocytes # (Manual) 1.3 K/mm3 (1.2-5.4) 10/24/17 03:15 Abs React Lymphs (Man) 0.0 K/mm3 10/24/17 03:15 Monocytes # (Manual) 0.7 K/mm3 (0.0-0.8) 10/24/17 03:15 Eosinophils # (Manual) 0.0 K/mm3 (0.0-0.4) 10/24/17 03:15 Basophils # (Manual) 0.0 K/mm3 (0.0-0.1) 10/24/17 03:15 Metamyelocytes # 0.3 K/mm3 10/24/17 03:15 Myelocytes # 0.0 K/mm3 10/24/17 03:15 Promyelocytes # 0.0 K/mm3 10/24/17 03:15 Blast Cells # 0.0 K/mm3 10/24/17 03:15 WBC Morphology Not Reportable 10/24/17 03:15 Hypersegmented Neuts Not Reportable 10/24/17 03:15 Hyposegmented Neuts Not Reportable 10/24/17 03:15 Hypogranular Neuts Not Reportable 10/24/17 03:15 Smudge Cells Not Reportable 10/24/17 03:15 Toxic Granulation Not Reportable 10/24/17 03:15 Toxic Vacuolation Not Reportable 10/24/17 03:15 Dohle Bodies Not Reportable 10/24/17 03:15 Pelger-Huet Anomaly Not Reportable 10/24/17 03:15 Aroldo Rods Not Reportable 10/24/17 03:15 Platelet Estimate Appe 10/24/17 03:15 Clumped Platelets Not Reportable 10/24/17 03:15 Plt Clumps, EDTA Not Reportable 10/24/17 03:15 Large Platelets Not Reportable 10/24/17 03:15 Giant Platelets Not Reportable 10/24/17 03:15 Platelet Satelliting Not Reportable 10/24/17 03:15 Plt Morphology Comment Not Reportable 10/24/17 03:15 RBC Morphology Not Reportable 10/24/17 03:15 Dimorphic RBCs Not Reportable 10/24/17 03:15 Polychromasia Not Reportable 10/24/17 03:15 Hypochromasia 1+ 10/24/17 03:15 Poikilocytosis Not Reportable 10/24/17 03:15 Anisocytosis Not Reportable 10/24/17 03:15 Microcytosis Not Reportable 10/24/17 03:15 Macrocytosis Not Reportable 10/24/17 03:15 Spherocytes Not Reportable 10/24/17 03:15 Pappenheimer Bodies Not Reportable 10/24/17 03:15 Sickle Cells Not Reportable 10/24/17 03:15 Target Cells Not Reportable 10/24/17 03:15 Tear Drop Cells Not Reportable 10/24/17 03:15 Ovalocytes Not Reportable 10/24/17 03:15 Helmet Cells Not Reportable 10/24/17 03:15 Ferrera-[place] Bodies Not Reportable 10/24/17 03:15 [place] Rings Not Reportable 10/24/17 03:15 [place] Cells Not Reportable 10/24/17 03:15 Bite Cells Not Reportable 10/24/17 03:15 Crenated Cell Not Reportable 10/24/17 03:15 Elliptocytes Not Reportable 10/24/17 03:15 Acanthocytes (Spur) Not Reportable 10/24/17 03:15 Rouleaux Not Reportable 10/24/17 03:15 Hemoglobin C Crystals Not Reportable 10/24/17 03:15 Schistocytes Not Reportable 10/24/17 03:15 Malaria parasites Not Reportable 10/24/17 03:15 Andrea Bodies Not Reportable 10/24/17 03:15 Hem Pathologist Commnt No 10/24/17 03:15 PT 12.3 Sec. (12.2-14.9) 10/23/17 05:00 INR 0.87 (0.87-1.13) 10/23/17 05:00 APTT 29.4 Sec. (24.2-36.6) 10/23/17 05:00 Activated Clotting Time 285 (74-137) H 10/23/17 06:20 POC ABG pH 7.359 (7.35-7.45) 10/24/17 17:52 POC ABG pCO2 50.4 (35-45) H 10/24/17 17:52 POC ABG pO2 116 (80-105) H 10/24/17 17:52 POC ABG HCO3 28.4 10/24/17 17:52 POC ABG Total CO2 30 10/24/17 17:52 POC ABG O2 Sat 98 10/24/17 17:52 POC ABG Base Excess 3 10/24/17 17:52 FiO2 2.5 % 10/24/17 17:52 Sodium 140 mmol/L (137-145) 10/24/17 03:15 Potassium 4.5 mmol/L (3.6-5.0) 10/24/17 03:15 Chloride 97.7 mmol/L (98-107) L 10/24/17 03:15 Carbon Dioxide 26 mmol/L (22-30) 10/24/17 03:15 Anion Gap 21 mmol/L 10/24/17 03:15 BUN 25 mg/dL (7-17) H 10/24/17 03:15 Creatinine 0.7 mg/dL (0.7-1.2) 10/24/17 03:15 Estimated GFR > 60 ml/min 10/24/17 03:15 BUN/Creatinine Ratio 36 % 10/24/17 03:15 Glucose 330 mg/dL (65-100) H 10/24/17 03:15 POC Glucose 253 (70-105) H 10/25/17 07:20 Calcium 9.1 mg/dL (8.4-10.2) 10/24/17 03:15 Total Bilirubin 0.20 mg/dL (0.1-1.2) 10/23/17 13:25 AST 156 units/L (5-40) H 10/23/17 13:25 ALT 38 units/L (7-56) 10/23/17 13:25 Alkaline Phosphatase 57 units/L (35-129) 10/23/17 13:25 Total Creatine Kinase 670 units/L (30-135) H 10/24/17 03:15 CK-MB (CK-2) 68.3 ng/mL (0.0-4.0) H 10/24/17 03:15 CK-MB (CK-2) Rel Index 10.1 (0-4) H 10/24/17 03:15 Troponin T 2.140 ng/mL (0.00-0.029) H* D 10/24/17 03:15 Total Protein 6.9 g/dL (6.3-8.2) 10/23/17 13:25 Albumin 3.3 g/dL (3.9-5) L 10/23/17 13:25 Albumin/Globulin Ratio 0.9 % 10/23/17 13:25 Triglycerides 94 mg/dL (2-149) 10/23/17 08:43 Cholesterol 267 mg/dL (50-199) H 10/23/17 08:43 LDL Cholesterol Direct 190 mg/dL (50-130) H 10/23/17 08:43 HDL Cholesterol 59 mg/dL (40-59) 10/23/17 08:43 Cholesterol/HDL Ratio 4.52 % 10/23/17 08:43
--- NOTE | 2017-10-25 10:21 | Discharge Summary ---
Providers - Providers Date of Admission: 10/23/17 07:14 Date of discharge: 10/26/17 Attending physician: NADEEM SIN 10/23/17 Consult to Cardiac Rehabilitation [CONS] Routine Reason For Exam: post pci 10/23/17 05:09 Consult to Physician [CONS] Urgent Consulting Provider: ELAINE CUETO Reason For Exam: stemi Notified:: yes 10/23/17 09:35 Consult to Physician [CONS] Routine Consulting Provider: JESSE DICKEY Reason For Exam: CCU care post-STEMI Place consult to:: [place] Notified:: yes 10/24/17 11:52 Consult to Physician [CONS] Routine Consulting Provider: KELSI HUNTER Reason For Exam: DM Place consult to:: Dr. Hunter Notified:: Y Was contact made?: Yes If yes, spoke with:: Dr. Hunter Primary care physician: QUYNH SANCHES Hospitalization Reason for admission: STEMI Condition: Critical Hospital course: This is a 52-year-old female, brought to the hospital by EMS as an out of hospital code STEMI. Patient complained of central and left-sided chest pain that radiated to the back, associated with shortness of breath and generalized weakness. Her pain was constant, and it decreased with fentanyl, nitroglycerin. Pt. denied cocaine use. Prehospital EKG was consistent with a STEMI, was transmitted to the on-call automobile service station mechanic, Dr. Etta Cueto Code STEMI was called overhead prior to patient's arrival. Upon arrival to the ER, the patient's repeat EKG was morphologically consistent with a STEMI, and transmitted to the aforementioned consulting automobile service station mechanic. PT underwent PCI to mid LAD. Other findings revealed left ventricular hypokinesis with EF 15-20%. Pt. received IABP with 1:1 augmentation and admitted to the ICU Patient with a history of dye allergy - she was pre-medicated with iv steroids /H1 and H2 blockers at time of STEMI and low ionic low osmolar dye used for cardiac catheterization. The patient's blood sugar was noted to be somewhat elevated. However, patient was not on her home regimen of medications. Her home diabetes medications were resumed and blood sugars stabilized. Cardiology felt the patient could discharged home. Dedicated discharge time 32 minutes. Disposition: TO HOME OR SELFCARE Time spent for discharge: 32 - Discharge Diagnoses (1) Acute systolic congestive heart failure Status: Acute (2) STEMI (ST elevation myocardial infarction) Status: Acute Qualifiers: Involved coronary artery: unspecified coronary artery Qualified Code(s): I21.3 - ST elevation (STEMI) myocardial infarction of unspecified site (3) Acute bronchitis Status: Acute (4) Acute chest pain Status: Acute (5) Cardiomyopathy Status: Chronic Core Measure Documentation - Palliative Care Palliative Care/ Comfort Measures: Not Applicable - Core Measures Any of the following diagnoses?: acute OR, heart failure - Acute OR Discharge Requirements Aspirin at discharge: Yes CONG/ARB for LVSD if EF <40%: Yes Beta katherine at discharge: Yes Statin for LDL = or >100 mg/dl on DC: Yes - Heart Failure Discharge Requirements CONG/ARB for LVSD if EF <40%: Yes Beta katherine at discharge: Yes Exam - Constitutional Vitals: Temp Pulse Resp BP Pulse Ox 98.0 F 80 20 119/66 95 10/25/17 08:21 10/25/17 08:21 10/25/17 08:21 10/25/17 08:21 10/25/17 08:21 General appearance: Present: no acute distress, well-nourished - EENT Eyes: Present: PERRL ENT: hearing intact, clear oral mucosa - Neck Neck: Present: supple, normal ROM - Respiratory Respiratory effort: normal Respiratory: bilateral: CTA - Cardiovascular Heart Sounds: Present: S1 & S2. Absent: rub, click - Extremities Extremities: pulses symmetrical, No edema Peripheral Pulses: within normal limits - Abdominal General gastrointestinal: Present: soft, non-tender, non-distended, normal bowel sounds Female genitourinary: Present: normal - Integumentary Integumentary: Present: clear, warm, dry - Musculoskeletal Musculoskeletal: gait normal, strength equal bilaterally - Psychiatric Psychiatric: appropriate mood/affect, intact judgment & insight - Neurologic Neurologic: CNII-XII intact, moves all extremities Plan Activity: no restrictions Weight Bearing Status: Full Weight Bearing Diet: low fat, low cholesterol, low salt, diabetic Follow up with: QUYNH SANCHES MD [Primary Care Provider] - 7 Days ELAINE CUETO MD [Staff Physician] - 7 Days Prescriptions: Aspirin EC [Aspirin Enteric Coated TAB] 325 mg PO QDAY #30 tablet Canagliflozin [Invokana] 100 mg PO DAILY #30 tablet Carvedilol [Coreg] 6.25 mg PO BID #60 tablet Clopidogrel [Plavix] 75 mg PO QDAY #30 tablet Insulin Glargine,Hum.rec.anlog [Lantus Solostar] 55 units SQ QHS #30 insuln.pen ISOSORBIDE MONOnitrate [Imdur ER] 30 mg PO QAM #30 tablet Lovastatin [Altoprev] 40 mg PO DAILY #30 tab.er.24h metFORMIN [Glucophage] 500 mg PO BID #60 tablet Nitroglycerin 0.4 mg SL DAILY PRN #30 tab.subl PRN Reason: Chest Pain Pantoprazole [Protonix TAB] 20 mg PO QDAY #5 tablet. Potassium Chloride [Klor-Con M20] 20 meq PO DAILY #30 tab.er.prt Pregabalin [Lyrica] 75 mg PO BID #60 capsule Sacubitril/Valsartan [Entresto 24 mg-26 mg (Nf)] 1 each PO DAILY #30 tablet
--- NOTE | 2017-10-25 10:47 | Progress Note ---
Assessment and Plan Assessment: S/p Acute anterior STEMI CAD s/p PCI of mid LAD 10/23/2017 Cardiogenic shock - s/p IABP; resolved CMP AICD in situ HTN DM Morbid obesity Plan: Currently stable cardiac status. Cont present cardiac regimen. Pt to resume home Entresto at discharge. Pt may discharge home from cardiology standpoint. Follow up in our [place] office with Dr. Elias on 10/31/2017 @ 10:45AM. Assessment and plan reviewed with pt at bedside. The patient has been seen in conjunction with Dr. Charles who agrees with the assessment and plan of care. Subjective Date of service: 10/25/17 Principal diagnosis: Acute Hypoxemic Respiratory Failure; STEMI s/p PCI; Cardiomyopathy-LVEF 20% Interval history: pt resting comfortably in bed, c/o some right groin soreness, right groin LHC site c/d/i with some minimal ecchymosis noted. Objective Last Vital Signs Temp 98.0 F 10/25/17 08:21 Pulse 80 10/25/17 08:21 Resp 20 10/25/17 08:21 BP 119/66 10/25/17 08:21 Pulse Ox 95 10/25/17 08:21 - Physical Examination General: No Apparent Distress HEENT: Positive: PERRL Neck: Positive: neck supple, trachea midline Cardiac: Positive: Reg Rate and Rhythm, S1/S2 Lungs: Positive: clear to auscultation Neuro: Positive: Grossly Intact, Cranial Nerve 2-12 Intact Abdomen: Positive: Soft. Negative: Tender Skin: Positive: Clear. Negative: Rash, Wound Incision: Cardiac Cath Site (right groin ) Musculoskeletal: No Fluid Collection, No Pain, Normal Range of Motion Extremities: Absent: edema - Labs and Meds CBC 10/25/17 Range/Units 04:35 Plt Count 205 (140-440) K/mm3 - Imaging and Cardiology EKG: report reviewed, image reviewed Echo: report reviewed (EF 10-15%, LV mild to mod dilated, impaired relaxation, pacemaker wire in RV. ) Cardiac cath: report reviewed (PCI of mid LAD) - Telemetry EKG Rhythm: Sinus Rhythm - Allied health notes Allied health notes reviewed: nursing
[2017-10-25] MEDS: PLAVIX PO SCH (11:10)
[2017-10-25] MEDS: IMDUR PO SCH (11:10)
[2017-10-25] MEDS: GLUCOPHAGE PO SCH ×2 (11:10→18:00)
[2017-10-25] MEDS: LYRICA PO SCH ×2 (11:11→22:23)
[2017-10-25] MEDS: PEPCID PO SCH (11:11)
[2017-10-25] MEDS: ECOTRIN PO SCH (11:11)
[2017-10-25] MEDS: LASIX PO SCH (11:11)
[2017-10-25] MEDS: NORVASC PO SCH (11:12)
[2017-10-25] MEDS: COREG PO SCH ×2 (11:12→22:24)
--- NOTE | 2017-10-25 13:46 | Progress Note ---
Assessment and Plan Assessment and plan: Acute STEMI. Patient is status post PCI. Continue medications. Cardiology following. Diabetes mellitus type 2, insulin-dependent. Resume Invokana, metformin and lantus home regimens Hypertension. Continue antihypertensive medications. Cardiomyopathy. EF of 20%. Continue Lasix per cardiology. DVT. Continue Lovenox daily. - Patient Problems (1) Acute systolic congestive heart failure Current Visit: Yes Status: Acute (2) STEMI (ST elevation myocardial infarction) Current Visit: Yes Status: Acute Qualifiers: Involved coronary artery: unspecified coronary artery Qualified Code(s): I21.3 - ST elevation (STEMI) myocardial infarction of unspecified site (3) Acute bronchitis Current Visit: No Status: Acute (4) Acute chest pain Current Visit: No Status: Acute (5) Cardiomyopathy Current Visit: No Status: Chronic History Interval history: No new issues overnight Hospitalist Physical - Constitutional Vitals: Temp Pulse Resp BP Pulse Ox 98.2 F 92 H 20 122/72 95 10/25/17 12:21 10/25/17 12:21 10/25/17 12:21 10/25/17 12:21 10/25/17 12:21 General appearance: Present: no acute distress, well-nourished - EENT Eyes: Present: PERRL, EOM intact ENT: hearing intact, clear oral mucosa, dentition normal - Neck Neck: Present: supple, normal ROM - Respiratory Respiratory effort: normal Respiratory: bilateral: CTA - Cardiovascular Rhythm: regular Heart Sounds: Present: S1 & S2. Absent: gallop, rub - Extremities Extremities: no ischemia, No edema, Full ROM - Abdominal General gastrointestinal: soft, non-tender, non-distended, normal bowel sounds - Integumentary Integumentary: Present: clear, warm, dry - Neurologic Neurologic: CNII-XII intact, moves all extremities Results - Labs CBC & Chem 7: 10/25/17 04:35 10/24/17 03:15 Labs: Laboratory Last Values WBC 14.0 K/mm3 (4.5-11.0) H 10/24/17 03:15 RBC 4.17 M/mm3 (3.65-5.03) 10/24/17 03:15 Hgb 10.4 gm/dl (10.1-14.3) 10/24/17 03:15 Hct 32.3 % (30.3-42.9) 10/24/17 03:15 MCV 78 fl (79-97) L 10/24/17 03:15 MCH 25 pg (28-32) L 10/24/17 03:15 MCHC 32 % (30-34) 10/24/17 03:15 RDW 16.2 % (13.2-15.2) H 10/24/17 03:15 Plt Count 205 K/mm3 (140-440) 10/25/17 04:35 Lymph % (Auto) 33.9 % (13.4-35.0) 10/23/17 05:00 [place] % (Auto) 6.0 % (0.0-7.3) 10/23/17 05:00 Eos % (Auto) 2.6 % (0.0-4.3) 10/23/17 05:00 Baso % (Auto) 0.5 % (0.0-1.8) 10/23/17 05:00 Lymph # 2.0 K/mm3 (1.2-5.4) 10/23/17 05:00 [place] # 0.3 K/mm3 (0.0-0.8) 10/23/17 05:00 Eos # 0.2 K/mm3 (0.0-0.4) 10/23/17 05:00 Baso # 0.0 K/mm3 (0.0-0.1) 10/23/17 05:00 Add Manual Diff Complete 10/24/17 03:15 Total Counted 100 10/24/17 03:15 Seg Neutrophils % Video Effects Editor 10/24/17 03:15 Seg Neuts % (Manual) 77.0 % (40.0-70.0) H 10/24/17 03:15 Band Neutrophils % 7.0 % 10/24/17 03:15 Lymphocytes % (Manual) 9.0 % (13.4-35.0) L 10/24/17 03:15 Reactive Lymphs % (Man) 0 % 10/24/17 03:15 Monocytes % (Manual) 5.0 % (0.0-7.3) 10/24/17 03:15 Eosinophils % (Manual) 0 % (0.0-4.3) 10/24/17 03:15 Basophils % (Manual) 0 % (0.0-1.8) 10/24/17 03:15 Metamyelocytes % 2.0 % 10/24/17 03:15 Myelocytes % 0 % 10/24/17 03:15 Promyelocytes % 0 % 10/24/17 03:15 Blast Cells % 0 % 10/24/17 03:15 Nucleated RBC % Not Reportable 10/24/17 03:15 Seg Neutrophils # 3.3 K/mm3 (1.8-7.7) 10/23/17 05:00 Seg Neutrophils # Man 10.8 K/mm3 (1.8-7.7) H 10/24/17 03:15 Band Neutrophils # 1.0 K/mm3 10/24/17 03:15 Lymphocytes # (Manual) 1.3 K/mm3 (1.2-5.4) 10/24/17 03:15 Abs React Lymphs (Man) 0.0 K/mm3 10/24/17 03:15 Monocytes # (Manual) 0.7 K/mm3 (0.0-0.8) 10/24/17 03:15 Eosinophils # (Manual) 0.0 K/mm3 (0.0-0.4) 10/24/17 03:15 Basophils # (Manual) 0.0 K/mm3 (0.0-0.1) 10/24/17 03:15 Metamyelocytes # 0.3 K/mm3 10/24/17 03:15 Myelocytes # 0.0 K/mm3 10/24/17 03:15 Promyelocytes # 0.0 K/mm3 10/24/17 03:15 Blast Cells # 0.0 K/mm3 10/24/17 03:15 WBC Morphology Not Reportable 10/24/17 03:15 Hypersegmented Neuts Not Reportable 10/24/17 03:15 Hyposegmented Neuts Not Reportable 10/24/17 03:15 Hypogranular Neuts Not Reportable 10/24/17 03:15 Smudge Cells Not Reportable 10/24/17 03:15 Toxic Granulation Not Reportable 10/24/17 03:15 Toxic Vacuolation Not Reportable 10/24/17 03:15 Dohle Bodies Not Reportable 10/24/17 03:15 Pelger-Huet Anomaly Not Reportable 10/24/17 03:15 Aroldo Rods Not Reportable 10/24/17 03:15 Platelet Estimate Appe 10/24/17 03:15 Clumped Platelets Not Reportable 10/24/17 03:15 Plt Clumps, EDTA Not Reportable 10/24/17 03:15 Large Platelets Not Reportable 10/24/17 03:15 Giant Platelets Not Reportable 10/24/17 03:15 Platelet Satelliting Not Reportable 10/24/17 03:15 Plt Morphology Comment Not Reportable 10/24/17 03:15 RBC Morphology Not Reportable 10/24/17 03:15 Dimorphic RBCs Not Reportable 10/24/17 03:15 Polychromasia Not Reportable 10/24/17 03:15 Hypochromasia 1+ 10/24/17 03:15 Poikilocytosis Not Reportable 10/24/17 03:15 Anisocytosis Not Reportable 10/24/17 03:15 Microcytosis Not Reportable 10/24/17 03:15 Macrocytosis Not Reportable 10/24/17 03:15 Spherocytes Not Reportable 10/24/17 03:15 Pappenheimer Bodies Not Reportable 10/24/17 03:15 Sickle Cells Not Reportable 10/24/17 03:15 Target Cells Not Reportable 10/24/17 03:15 Tear Drop Cells Not Reportable 10/24/17 03:15 Ovalocytes Not Reportable 10/24/17 03:15 Helmet Cells Not Reportable 10/24/17 03:15 Ferrera-Elwin Bodies Not Reportable 10/24/17 03:15 [place] Rings Not Reportable 10/24/17 03:15 [place] Cells Not Reportable 10/24/17 03:15 Bite Cells Not Reportable 10/24/17 03:15 Crenated Cell Not Reportable 10/24/17 03:15 Elliptocytes Not Reportable 10/24/17 03:15 Acanthocytes (Spur) Not Reportable 10/24/17 03:15 Rouleaux Not Reportable 10/24/17 03:15 Hemoglobin C Crystals Not Reportable 10/24/17 03:15 Schistocytes Not Reportable 10/24/17 03:15 Malaria parasites Not Reportable 10/24/17 03:15 Andrea Bodies Not Reportable 10/24/17 03:15 Hem Pathologist Commnt No 10/24/17 03:15 PT 12.3 Sec. (12.2-14.9) 10/23/17 05:00 INR 0.87 (0.87-1.13) 10/23/17 05:00 APTT 29.4 Sec. (24.2-36.6) 10/23/17 05:00 Activated Clotting Time 285 (74-137) H 10/23/17 06:20 POC ABG pH 7.359 (7.35-7.45) 10/24/17 17:52 POC ABG pCO2 50.4 (35-45) H 10/24/17 17:52 POC ABG pO2 116 (80-105) H 10/24/17 17:52 POC ABG HCO3 28.4 10/24/17 17:52 POC ABG Total CO2 30 10/24/17 17:52 POC ABG O2 Sat 98 10/24/17 17:52 POC ABG Base Excess 3 10/24/17 17:52 FiO2 2.5 % 10/24/17 17:52 Sodium 140 mmol/L (137-145) 10/24/17 03:15 Potassium 4.5 mmol/L (3.6-5.0) 10/24/17 03:15 Chloride 97.7 mmol/L (98-107) L 10/24/17 03:15 Carbon Dioxide 26 mmol/L (22-30) 10/24/17 03:15 Anion Gap 21 mmol/L 10/24/17 03:15 BUN 25 mg/dL (7-17) H 10/24/17 03:15 Creatinine 0.7 mg/dL (0.7-1.2) 10/24/17 03:15 Estimated GFR > 60 ml/min 10/24/17 03:15 BUN/Creatinine Ratio 36 % 10/24/17 03:15 Glucose 330 mg/dL (65-100) H 10/24/17 03:15 POC Glucose 253 (70-105) H 10/25/17 07:20 Calcium 9.1 mg/dL (8.4-10.2) 10/24/17 03:15 Total Bilirubin 0.20 mg/dL (0.1-1.2) 10/23/17 13:25 AST 156 units/L (5-40) H 10/23/17 13:25 ALT 38 units/L (7-56) 10/23/17 13:25 Alkaline Phosphatase 57 units/L (35-129) 10/23/17 13:25 Total Creatine Kinase 670 units/L (30-135) H 10/24/17 03:15 CK-MB (CK-2) 68.3 ng/mL (0.0-4.0) H 10/24/17 03:15 CK-MB (CK-2) Rel Index 10.1 (0-4) H 10/24/17 03:15 Troponin T 2.140 ng/mL (0.00-0.029) H* D 10/24/17 03:15 Total Protein 6.9 g/dL (6.3-8.2) 10/23/17 13:25 Albumin 3.3 g/dL (3.9-5) L 10/23/17 13:25 Albumin/Globulin Ratio 0.9 % 10/23/17 13:25 Triglycerides 94 mg/dL (2-149) 10/23/17 08:43 Cholesterol 267 mg/dL (50-199) H 10/23/17 08:43 LDL Cholesterol Direct 190 mg/dL (50-130) H 10/23/17 08:43 HDL Cholesterol 59 mg/dL (40-59) 10/23/17 08:43 Cholesterol/HDL Ratio 4.52 % 10/23/17 08:43
[2017-10-25] MEDS ORDERED: MOTRIN PO SCH (14:00)
[2017-10-25] MEDS ORDERED: TRIMOX PO SCH (14:00)
--- NOTE | 2017-10-25 16:54 | Progress Note ---
Assessment and Plan Patient resting on room air. No acute respiratory distress. O2 saturation 97% on room air. - Patient Problems (1) Acute systolic congestive heart failure Current Visit: Yes Status: Acute Plan to address problem: Management as per primary care and cardiology. (2) STEMI (ST elevation myocardial infarction) Current Visit: Yes Status: Acute Qualifiers: Involved coronary artery: unspecified coronary artery Qualified Code(s): I21.3 - ST elevation (STEMI) myocardial infarction of unspecified site Plan to address problem: Management as per cardiology. (3) Acute bronchitis Current Visit: No Status: Acute Plan to address problem: Treated with Augmentin. (4) Acute chest pain Current Visit: No Status: Acute Plan to address problem: Management as per cardiology. (5) Elevated blood pressure Current Visit: No Status: Acute Plan to address problem: Management as per cardiology. (6) Type 2 diabetes mellitus Current Visit: No Status: Chronic Qualifiers: Qualified Code(s): E11.10 - Type 2 diabetes mellitus with ketoacidosis without coma Plan to address problem: Management as per primary care. (7) Acute and chronic respiratory failure with hypercapnia Current Visit: Yes Status: Acute Plan to address problem: BIPAP Brovanna/Budesonide aerosol treatments q 12 hours. Albuterol/atrovent aerosol treatments q 6 hours prn for shortness of breath. Lovenox 40 mg S/C qd. Continue Protonix. (8) Morbid (severe) obesity with alveolar hypoventilation Current Visit: Yes Status: Acute Plan to address problem: BIPAP weight reduction diet Recommend exercise. (9) Obstructive sleep apnea Current Visit: Yes Status: Acute Plan to address problem: BIPAP. Subjective Date of service: 10/25/17 Principal diagnosis: Acute Hypoxemic Respiratory Failure; STEMI s/p PCI; Cardiomyopathy-LVEF 20% Interval history: Patient resting on room air. No acute respiratory distress. O2 saturation 97% on room air. Objective Vital Signs - 12hr 10/25/17 10/25/17 10/25/17 08:21 12:21 16:15 Temperature 98.0 F 98.2 F 98.3 F Pulse Rate 80 92 H 74 Respiratory 20 20 20 Rate Blood Pressure 119/66 122/72 111/64 [Left] O2 Sat by Pulse 95 95 97 Oximetry Constitutional: no acute distress, other (somnolent) Eyes: non-icteric ENT: oropharynx moist, other (No goiter) Neck: supple, no lymphadenopathy, no JVD, other (short neck) Effort: normal Ascultation: Bilateral: diminished breath sounds, other (no stridor) Percussion: Bilateral: not dull Cardiovascular: regular rate and rhythm, other (No rubs or murmurs) Gastrointestinal: normoactive bowel sounds, soft, non-tender, non-distended, other (No palpable HSM) Integumentary: normal Extremities: no cyanosis, no edema, pulses normal, no ischemia or petechiae Neurologic: normal mental status, non-focal exam, pupils equal and round, motor strength normal and, other (somnolent but easily roused) Psychiatric: mood appropriate, affect normal CBC and BMP: 10/25/17 04:35 10/24/17 03:15 ABG, PT/INR, D-dimer: ABG POC ABG pH 7.359 (7.35-7.45) 10/24/17 17:52 POC ABG pCO2 50.4 (35-45) H 10/24/17 17:52 POC ABG pO2 116 (80-105) H 10/24/17 17:52 POC ABG HCO3 28.4 10/24/17 17:52 POC ABG Total CO2 30 10/24/17 17:52 POC ABG O2 Sat 98 10/24/17 17:52 PT/INR, D-dimer PT 12.3 Sec. (12.2-14.9) 10/23/17 05:00 INR 0.87 (0.87-1.13) 10/23/17 05:00 Abnormal lab findings: Abnormal Labs 10/23/17 10/23/17 10/23/17 05:00 05:00 05:14 WBC RBC 5.46 H MCV 78 L MCH 25 L RDW 16.6 H Seg Neuts % (Manual) Lymphocytes % (Manual) Seg Neutrophils # Man Activated Clotting Time POC ABG pH POC ABG pCO2 POC ABG pO2 Sodium Chloride 96.4 L BUN Glucose 316 H POC Glucose 302 H AST Total Creatine Kinase CK-MB (CK-2) CK-MB (CK-2) Rel Index Troponin T Albumin Cholesterol LDL Cholesterol Direct 10/23/17 10/23/17 10/23/17 05:57 06:20 08:43 WBC RBC MCV MCH RDW Seg Neuts % (Manual) Lymphocytes % (Manual) Seg Neutrophils # Man Activated Clotting Time 224 H 285 H POC ABG pH POC ABG pCO2 POC ABG pO2 Sodium Chloride BUN Glucose POC Glucose AST Total Creatine Kinase CK-MB (CK-2) CK-MB (CK-2) Rel Index Troponin T 4.830 H* D Albumin Cholesterol 267 H LDL Cholesterol Direct 190 H 10/23/17 10/23/17 10/23/17 11:15 13:25 13:25 WBC RBC MCV MCH RDW Seg Neuts % (Manual) Lymphocytes % (Manual) Seg Neutrophils # Man Activated Clotting Time POC ABG pH 7.334 L POC ABG pCO2 55.9 H POC ABG pO2 107 H Sodium 136 L Chloride 96.5 L BUN 20 H Glucose 380 H POC Glucose AST 156 H Total Creatine Kinase CK-MB (CK-2) CK-MB (CK-2) Rel Index Troponin T 3.870 H* Albumin 3.3 L Cholesterol LDL Cholesterol Direct 10/23/17 10/23/17 10/23/17 16:49 18:25 21:39 WBC 11.5 H RBC MCV MCH 25 L RDW 16.1 H Seg Neuts % (Manual) Lymphocytes % (Manual) Seg Neutrophils # Man Activated Clotting Time POC ABG pH POC ABG pCO2 POC ABG pO2 Sodium Chloride BUN Glucose POC Glucose 352 H 414 H AST Total Creatine Kinase CK-MB (CK-2) CK-MB (CK-2) Rel Index Troponin T Albumin Cholesterol LDL Cholesterol Direct 10/24/17 10/24/17 10/24/17 03:15 03:15 11:35 WBC 14.0 H RBC MCV 78 L MCH 25 L RDW 16.2 H Seg Neuts % (Manual) 77.0 H Lymphocytes % (Manual) 9.0 L Seg Neutrophils # Man 10.8 H Activated Clotting Time POC ABG pH POC ABG pCO2 POC ABG pO2 Sodium Chloride 97.7 L BUN 25 H Glucose 330 H POC Glucose > 500 H AST Total Creatine Kinase 670 H CK-MB (CK-2) 68.3 H CK-MB (CK-2) Rel Index 10.1 H Troponin T 2.140 H* D Albumin Cholesterol LDL Cholesterol Direct 10/24/17 10/24/17 10/24/17 13:37 16:44 17:52 WBC RBC MCV MCH RDW Seg Neuts % (Manual) Lymphocytes % (Manual) Seg Neutrophils # Man Activated Clotting Time POC ABG pH POC ABG pCO2 50.4 H POC ABG pO2 116 H Sodium Chloride BUN Glucose POC Glucose 398 H 424 H AST Total Creatine Kinase CK-MB (CK-2) CK-MB (CK-2) Rel Index Troponin T Albumin Cholesterol LDL Cholesterol Direct 10/24/17 10/25/17 20:59 07:20 WBC RBC MCV MCH RDW Seg Neuts % (Manual) Lymphocytes % (Manual) Seg Neutrophils # Man Activated Clotting Time POC ABG pH POC ABG pCO2 POC ABG pO2 Sodium Chloride BUN Glucose POC Glucose 396 H 253 H AST Total Creatine Kinase CK-MB (CK-2) CK-MB (CK-2) Rel Index Troponin T Albumin Cholesterol LDL Cholesterol Direct Chest x-ray: report reviewed (cardiomegaly with out congestive changes. No infiltrates. Pacemaker implantation.), image reviewed Allied health notes reviewed: nursing
[2017-10-25] MEDS: K-DUR PO SCH (18:00)
[2017-10-25] MEDS: PROTONIX PO SCH (18:00)
[2017-10-25] MEDS ORDERED: BROVANA NEBU IH SCH (20:00)
[2017-10-25] MEDS ORDERED: PULMICORT IH SCH (20:00)
[2017-10-25] MEDS ORDERED: ESTRADIOL 42.5 GM VG SCH (22:00)
[2017-10-25] MEDS ORDERED: LEVEMIR SUB-Q SCH ×2 (22:00)
[2017-10-25] MEDS ORDERED: INSULIN GLARGINE HUM REC ANLOG 55 UNIT SQ SCH (22:00)
[2017-10-25] MEDS: NOVOLOG SUB-Q SCH (22:51)
[2017-10-26] MEDS: NOVOLOG SUB-Q SCH (08:26)
[2017-10-26] MEDS: PLAVIX PO SCH (12:00)
[2017-10-26] MEDS: LASIX PO SCH (12:01)
[2017-10-26] MEDS: PROTONIX PO SCH (12:01)
[2017-10-26] MEDS: IMDUR PO SCH (12:01)
[2017-10-26] MEDS: COREG PO SCH (12:01)
[2017-10-26] MEDS: GLUCOPHAGE PO SCH (12:02)
[2017-10-26] MEDS: LYRICA PO SCH (12:02)
[2017-10-26] MEDS: ECOTRIN PO SCH (12:02)
[2017-10-26] MEDS: NORVASC PO SCH (12:02)
[2017-10-26] MEDS: PEPCID PO SCH (12:02)
[2017-10-26] MEDS: K-DUR PO SCH (12:03)
--- NOTE | 2017-10-26 12:14 | Progress Note ---
Subjective Date of service: 10/26/17 Principal diagnosis: Acute Hypoxemic Respiratory Failure; STEMI s/p PCI; Cardiomyopathy-LVEF 20% Interval history: Patient is seen today for: Seen and examined at bedside; 24hour events reviewed; nursing and respiratory care staff consulted; no adverse overnight events reported to me; Objective Vital Signs - 12hr 10/26/17 10/26/17 10/26/17 01:09 01:12 06:42 Temperature 97.8 F 97.8 F Pulse Rate 98 H 83 87 Pulse Rate [ Anterior Throughout] Respiratory 20 20 Rate Respiratory Rate [Anterior Throughout] Blood Pressure 95/52 101/69 O2 Sat by Pulse 100 98 Oximetry 10/26/17 10/26/17 07:09 07:15 Temperature Pulse Rate Pulse Rate [ 78 79 Anterior Throughout] Respiratory Rate Respiratory 19 18 Rate [Anterior Throughout] Blood Pressure O2 Sat by Pulse 98 Oximetry Constitutional: no acute distress, other (somnolent) Eyes: non-icteric ENT: oropharynx moist, other (No goiter) Neck: supple, no lymphadenopathy, no JVD, other (short neck) Effort: normal Ascultation: Bilateral: clear, diminished breath sounds, other (no stridor) Percussion: Bilateral: not dull Cardiovascular: regular rate and rhythm, other (No rubs or murmurs) Gastrointestinal: normoactive bowel sounds, soft, non-tender, non-distended, other (No palpable HSM) Integumentary: normal Extremities: no cyanosis, no edema, pulses normal, no ischemia or petechiae Neurologic: normal mental status, non-focal exam, pupils equal and round, motor strength normal and, other (somnolent but easily roused) Psychiatric: mood appropriate, affect normal CBC and BMP: 10/25/17 04:35 10/24/17 03:15 ABG, PT/INR, D-dimer: ABG POC ABG pH 7.359 (7.35-7.45) 10/24/17 17:52 POC ABG pCO2 50.4 (35-45) H 10/24/17 17:52 POC ABG pO2 116 (80-105) H 10/24/17 17:52 POC ABG HCO3 28.4 10/24/17 17:52 POC ABG Total CO2 30 10/24/17 17:52 POC ABG O2 Sat 98 10/24/17 17:52 PT/INR, D-dimer PT 12.3 Sec. (12.2-14.9) 10/23/17 05:00 INR 0.87 (0.87-1.13) 10/23/17 05:00 Abnormal lab findings: Abnormal Labs 10/23/17 10/23/17 10/23/17 05:00 05:00 05:14 WBC RBC 5.46 H MCV 78 L MCH 25 L RDW 16.6 H Seg Neuts % (Manual) Lymphocytes % (Manual) Seg Neutrophils # Man Activated Clotting Time POC ABG pH POC ABG pCO2 POC ABG pO2 Sodium Chloride 96.4 L BUN Glucose 316 H POC Glucose 302 H AST Total Creatine Kinase CK-MB (CK-2) CK-MB (CK-2) Rel Index Troponin T Albumin Cholesterol LDL Cholesterol Direct 10/23/17 10/23/17 10/23/17 05:57 06:20 08:43 WBC RBC MCV MCH RDW Seg Neuts % (Manual) Lymphocytes % (Manual) Seg Neutrophils # Man Activated Clotting Time 224 H 285 H POC ABG pH POC ABG pCO2 POC ABG pO2 Sodium Chloride BUN Glucose POC Glucose AST Total Creatine Kinase CK-MB (CK-2) CK-MB (CK-2) Rel Index Troponin T 4.830 H* D Albumin Cholesterol 267 H LDL Cholesterol Direct 190 H 10/23/17 10/23/17 10/23/17 11:15 13:25 13:25 WBC RBC MCV MCH RDW Seg Neuts % (Manual) Lymphocytes % (Manual) Seg Neutrophils # Man Activated Clotting Time POC ABG pH 7.334 L POC ABG pCO2 55.9 H POC ABG pO2 107 H Sodium 136 L Chloride 96.5 L BUN 20 H Glucose 380 H POC Glucose AST 156 H Total Creatine Kinase CK-MB (CK-2) CK-MB (CK-2) Rel Index Troponin T 3.870 H* Albumin 3.3 L Cholesterol LDL Cholesterol Direct 10/23/17 10/23/17 10/23/17 16:49 18:25 21:39 WBC 11.5 H RBC MCV MCH 25 L RDW 16.1 H Seg Neuts % (Manual) Lymphocytes % (Manual) Seg Neutrophils # Man Activated Clotting Time POC ABG pH POC ABG pCO2 POC ABG pO2 Sodium Chloride BUN Glucose POC Glucose 352 H 414 H AST Total Creatine Kinase CK-MB (CK-2) CK-MB (CK-2) Rel Index Troponin T Albumin Cholesterol LDL Cholesterol Direct 10/24/17 10/24/17 10/24/17 03:15 03:15 11:35 WBC 14.0 H RBC MCV 78 L MCH 25 L RDW 16.2 H Seg Neuts % (Manual) 77.0 H Lymphocytes % (Manual) 9.0 L Seg Neutrophils # Man 10.8 H Activated Clotting Time POC ABG pH POC ABG pCO2 POC ABG pO2 Sodium Chloride 97.7 L BUN 25 H Glucose 330 H POC Glucose > 500 H AST Total Creatine Kinase 670 H CK-MB (CK-2) 68.3 H CK-MB (CK-2) Rel Index 10.1 H Troponin T 2.140 H* D Albumin Cholesterol LDL Cholesterol Direct 10/24/17 10/24/17 10/24/17 13:37 16:44 17:52 WBC RBC MCV MCH RDW Seg Neuts % (Manual) Lymphocytes % (Manual) Seg Neutrophils # Man Activated Clotting Time POC ABG pH POC ABG pCO2 50.4 H POC ABG pO2 116 H Sodium Chloride BUN Glucose POC Glucose 398 H 424 H AST Total Creatine Kinase CK-MB (CK-2) CK-MB (CK-2) Rel Index Troponin T Albumin Cholesterol LDL Cholesterol Direct 10/24/17 10/25/17 10/25/17 20:59 07:20 11:14 WBC RBC MCV MCH RDW Seg Neuts % (Manual) Lymphocytes % (Manual) Seg Neutrophils # Man Activated Clotting Time POC ABG pH POC ABG pCO2 POC ABG pO2 Sodium Chloride BUN Glucose POC Glucose 396 H 253 H 313 H AST Total Creatine Kinase CK-MB (CK-2) CK-MB (CK-2) Rel Index Troponin T Albumin Cholesterol LDL Cholesterol Direct 10/25/17 10/25/17 10/26/17 15:18 22:46 07:38 WBC RBC MCV MCH RDW Seg Neuts % (Manual) Lymphocytes % (Manual) Seg Neutrophils # Man Activated Clotting Time POC ABG pH POC ABG pCO2 POC ABG pO2 Sodium Chloride BUN Glucose POC Glucose 308 H 310 H 139 H AST Total Creatine Kinase CK-MB (CK-2) CK-MB (CK-2) Rel Index Troponin T Albumin Cholesterol LDL Cholesterol Direct Allied health notes reviewed: nursing
[2017-10-26 13:59] VITALS: BP 100/66
== END 2017-10-26 14:28 | disposition home or self-care (01) | DRG 270 ==
LOC: ED 05:00 → CATH 07:13 → CC1 07:14 → 4A 10-24 16:36
PROVIDERS: ADMIT Internal Medicine; ATTEND Hospitalist
PROC: 5A02210 Assistance with Cardiac Output using Balloon Pump, Continuous (ICD-10-PCS; principal; 2017-10-23)
PROC: 027034Z Dilation of Coronary Artery, One Artery with Drug-eluting Intraluminal Device, Percutaneous Approach (ICD-10-PCS; 2017-10-23)
PROC: 4A023N7 Measurement of Cardiac Sampling and Pressure, Left Heart, Percutaneous Approach (ICD-10-PCS; 2017-10-23)
PROC: B2111ZZ Fluoroscopy of Multiple Coronary Arteries using Low Osmolar Contrast (ICD-10-PCS; 2017-10-23)
PROC: B2151ZZ Fluoroscopy of Left Heart using Low Osmolar Contrast (ICD-10-PCS; 2017-10-23)
PROC: 4A033R1 Measurement of Arterial Saturation, Peripheral, Percutaneous Approach (ICD-10-PCS; 2017-10-23)
PROC: 5A09357 Assistance with Respiratory Ventilation, Less than 24 Consecutive Hours, Continuous Positive Airway Pressure (ICD-10-PCS; 2017-10-23)
PROC: 5A09357 Assistance with Respiratory Ventilation, Less than 24 Consecutive Hours, Continuous Positive Airway Pressure (ICD-10-PCS; 2017-10-25)
DX: I21.09 ST elevation (STEMI) myocardial infarction involving other coronary artery of anterior wall (principal); R57.0 Cardiogenic shock; I50.21 Acute systolic (congestive) heart failure; J96.22 Acute and chronic respiratory failure with hypercapnia; Z68.43 Body mass index [BMI] 50.0-59.9, adult; I42.9 Cardiomyopathy, unspecified; E66.2 Morbid (severe) obesity with alveolar hypoventilation; I25.2 Old myocardial infarction; I11.0 Hypertensive heart disease with heart failure; E11.9 Type 2 diabetes mellitus without complications; J45.909 Unspecified asthma, uncomplicated; J20.9 Acute bronchitis, unspecified; Z79.4 Long term (current) use of insulin; Z86.73 Personal history of transient ischemic attack (TIA), and cerebral infarction without residual deficits; Z95.810 Presence of automatic (implantable) cardiac defibrillator
CPT/HCPCS: 33967; 36415; 36600; 71045; 80048; 80053; 80061; 82550; 82553; 82803; 82962; 84484; 85007; 85025; 85027; 85049; 85347; 85610; 85730; 92941; 92978; 93005; 93010; 93306; 93458; 94640; 94660; 94760; 96374; 96375; A6250; A9270-GY; C1725; C1753; C1769; C1874; C1887; C1894; C9606; J1100; J1200; J1644; J1815; J1818; J1940; J2250; J2270; J2405; J2930; J3010; J3246; J7030; J7040; Q9967

== ENCOUNTER 2017-11-11 08:17 | Emergency (ER) | payer MEDICARE ==
[2017-11-11 08:55] LABS: Basophils % (Auto) 0.8 % (0.0-1.8); Eosinophils # (Auto) 0.1 K/mm3 (0.0-0.4); Eosinophils % (Auto) 2.8 % (0.0-4.3); Hematocrit 34.3 % (30.3-42.9); Hemoglobin 10.6 gm/dl (10.1-14.3); Lymphocytes # (Auto) 1.6 K/mm3 (1.2-5.4); Lymphocytes % (Auto) 34.4 % (13.4-35.0); Mean Corpuscular HGB Conc 31 % (30-34); Mean Corpuscular Volume 81 fl (79-97); Monocytes # (Auto) 0.3 K/mm3 (0.0-0.8); Monocytes % (Auto) 6.1 % (0.0-7.3); Platelet Count 259 K/mm3 (140-440); Red Blood Count 4.25 M/mm3 (3.65-5.03); Red Cell Distribution Width 19.2 % (13.2-15.2)
[2017-11-11 08:57] LABS: Mean Corpuscular Hemoglobin 25 pg (28-32)
[2017-11-11 09:07] LABS: Calcium 9.5 mg/dL (8.4-10.2)
[2017-11-11 09:13] LABS: INR 0.94 (0.87-1.13)
[2017-11-11 09:14] LABS: Partial Thromboplastin Time 30.3 Sec. (24.2-36.6)
[2017-11-11 16:37] VITALS: BP 127/73
--- NOTE | 2017-11-11 17:08 | Emergency Department Report ---
ED Lower Extremity HPI - General Chief Complaint: Extremity Injury, Lower Stated Complaint: LEG PAIN Time Seen by Provider: 11/11/17 16:34 Source: patient Mode of arrival: Ambulatory Limitations: No Limitations - History of Present Illness Initial Comments: Patient is here complaining of a three-day history of right thigh pain. She says the pain is a mild to moderate intensity and nonradiating aggravated when she sits down with no relieving factor. Patient also noted some bruising on the inner part of her right which she says is decreased. Patient had a heart catheterization which was done from the right groin, 3 weeks ago Complaint: other (right leg pain) Onset/Timin (days) -: Gradual Injury: Thigh: Right Type of Injury: other (none) Place: home Severity: mild, moderate Improves With: nothing Worsens With: other (sitting) - Related Data Home Medications Medication Instructions Recorded Confirmed Last Taken Amlodipine Besylate 10 mg PO DAILY 09/16/13 10/24/17 08/11/15 10:46 Furosemide 40 mg PO DAILY 09/16/13 10/24/17 08/09/15 Amoxicillin [Trimox CAP] 500 mg PO TID 10/24/17 10/24/17 Unknown Estradiol [Estrace] 42.5 gm VG HS 10/24/17 10/24/17 Unknown Previous Rx's Medication Instructions Recorded Last Taken Type Aspirin EC [Aspirin Enteric Coated 325 mg PO QDAY #30 tablet 10/25/17 Unknown Rx TAB] Canagliflozin [Invokana] 100 mg PO DAILY #30 tablet 10/25/17 Unknown Rx Carvedilol [Coreg] 6.25 mg PO BID #60 tablet 10/25/17 Unknown Rx Clopidogrel [Plavix] 75 mg PO QDAY #30 tablet 10/25/17 Unknown Rx ISOSORBIDE MONOnitrate [Imdur ER] 30 mg PO QAM #30 tablet 10/25/17 Unknown Rx Insulin Glargine,Hum.rec.anlog 55 units SQ QHS #30 insuln.pen 10/25/17 Unknown Rx [Lantus Solostar] Insulin Regular, Human [HumuLIN R] 0 units SUB-Q ACHS units 10/25/17 Unknown Rx Lovastatin [Altoprev] 40 mg PO DAILY #30 tab.er.24h 10/25/17 Unknown Rx Nitroglycerin 0.4 mg SL DAILY PRN #30 tab.subl 10/25/17 Unknown Rx Pantoprazole [Protonix TAB] 20 mg PO QDAY #5 tablet.dr 10/25/17 Unknown Rx Petrolatum,White [Vaseline] 1 applic TP PRN PRN oint 10/25/17 Unknown Rx Potassium Chloride [Klor-Con M20] 20 meq PO DAILY #30 tab.er.prt 10/25/17 Unknown Rx Pregabalin [Lyrica] 75 mg PO BID #60 capsule 10/25/17 Unknown Rx Sacubitril/Valsartan [Entresto 24 1 each PO DAILY #30 tablet 10/25/17 Unknown Rx mg-26 mg (Nf)] metFORMIN [Glucophage] 500 mg PO BID #60 tablet 10/25/17 Unknown Rx Allergies Allergy/AdvReac Type Severity Reaction Status Date / Time shellfish derived Allergy anaphalyxis Verified 04/05/17 09:47 codeine AdvReac Vomiting Verified 04/05/17 09:47 ED Review of Systems ROS: Stated complaint: LEG PAIN Other details as noted in HPI Comment: All other systems reviewed and negative ED Past Medical Hx - Past Medical History Previous Medical History?: Yes Hx Hypertension: Yes Hx CVA: Yes Hx Heart Attack/AMI: Yes Hx Congestive Heart Failure: Yes Hx Diabetes: Yes (I) Hx Arthritis: Yes Hx Seizures: Yes (childhood) Hx Asthma: Yes Hx COPD: No Additional medical history: Anemia. Fibroid Tumor. Obesity - Surgical History Past Surgical History?: Yes Hx Pacemaker: Yes (Defibrillator placed in left chest under skin flap.) Additional Surgical History: x 3, tubal ligation in 1985. Surgery on L.Wrist - 1993. Pacemaker, defibrilator, Hysterectomy and Fibroid removal in 2014 removal. - Social History Smoking Status: Never Smoker Substance Use Type: Prescribed - Medications Home Medications: Home Medications Medication Instructions Recorded Confirmed Last Taken Type Amlodipine Besylate 10 mg PO DAILY 09/16/13 10/24/17 08/11/15 10:46 History Furosemide 40 mg PO DAILY 09/16/13 10/24/17 08/09/15 History Amoxicillin [Trimox CAP] 500 mg PO TID 10/24/17 10/24/17 Unknown History Estradiol [Estrace] 42.5 gm VG HS 10/24/17 10/24/17 Unknown History Aspirin EC [Aspirin Enteric Coated 325 mg PO QDAY #30 tablet 10/25/17 Unknown Rx TAB] Canagliflozin [Invokana] 100 mg PO DAILY #30 tablet 10/25/17 Unknown Rx Carvedilol [Coreg] 6.25 mg PO BID #60 tablet 10/25/17 Unknown Rx Clopidogrel [Plavix] 75 mg PO QDAY #30 tablet 10/25/17 Unknown Rx ISOSORBIDE MONOnitrate [Imdur ER] 30 mg PO QAM #30 tablet 10/25/17 Unknown Rx Insulin Glargine,Hum.rec.anlog 55 units SQ QHS #30 insuln.pen 10/25/17 Unknown Rx [Lantus Solostar] Insulin Regular, Human [HumuLIN R] 0 units SUB-Q ACHS units 10/25/17 Unknown Rx Lovastatin [Altoprev] 40 mg PO DAILY #30 tab.er.24h 10/25/17 Unknown Rx Nitroglycerin 0.4 mg SL DAILY PRN #30 tab.subl 10/25/17 Unknown Rx Pantoprazole [Protonix TAB] 20 mg PO QDAY #5 tablet.dr 10/25/17 Unknown Rx Petrolatum,White [Vaseline] 1 applic TP PRN PRN oint 10/25/17 Unknown Rx Potassium Chloride [Klor-Con M20] 20 meq PO DAILY #30 tab.er.prt 10/25/17 Unknown Rx Pregabalin [Lyrica] 75 mg PO BID #60 capsule 10/25/17 Unknown Rx Sacubitril/Valsartan [Entresto 24 1 each PO DAILY #30 tablet 10/25/17 Unknown Rx mg-26 mg (Nf)] metFORMIN [Glucophage] 500 mg PO BID #60 tablet 10/25/17 Unknown Rx ED Physical Exam - General Limitations: No Limitations General appearance: alert, in no apparent distress - Head Head exam: Present: atraumatic, normocephalic - Eye Eye exam: Present: normal appearance, EOMI Pupils: Present: normal accommodation - ENT ENT exam: Present: mucous membranes moist - Neck Neck exam: Present: normal inspection - Respiratory Respiratory exam: Present: normal lung sounds bilaterally. Absent: respiratory distress - Cardiovascular Cardiovascular Exam: Present: regular rate, normal rhythm. Absent: systolic murmur, diastolic murmur, rubs, gallop - GI/Abdominal GI/Abdominal exam: Present: soft, normal bowel sounds - Extremities Exam Extremities exam: Present: tenderness (on the right thigh) - Neurological Exam Neurological exam: Present: alert, oriented X3 - Psychiatric Psychiatric exam: Present: normal affect, normal mood - Skin Skin exam: Present: warm, dry, erythema (of the inner inferior one third of the right thigh) ED Course Vital Signs 11/11/17 11/11/17 08:27 16:36 Temperature 98.6 F Pulse Rate 84 76 Respiratory 18 18 Rate Blood Pressure 106/69 Blood Pressure 127/73 [Left] O2 Sat by Pulse 97 97 Oximetry ED Lower Extremity MDM - Lab Data Result diagrams: 11/11/17 08:38 11/11/17 08:38 Critical Care Time: No Critical care attestation.: If time is entered above; I have spent that time in minutes in the direct care of this critically ill patient, excluding procedure time. ED Disposition Clinical Impression: Leg pain, right Disposition: [id number] TO HOME OR SELFCARE Is pt being admited?: No Condition: Stable Instructions: Contusion in Adults (ED) Additional Instructions: Take Tylenol as needed for the pain. Referrals: PRIMARY CARE, [Primary Care Provider] - 3-5 Days Time of Disposition: 17:13 Print Language: ALBANIAN
--- NOTE | 2017-11-15 08:53 | Vascular Lab Report ---
Right Lower Extremity Venous Duplex Study: Reason for Exam: Pain of the right lower extremity. Comments on the Right: All veins visualized are freely compressible without evidence of internal echogenicity. Flow is spontaneous and phasic throughout. No evidence of acute or chronic thrombus is seen in any of the vessels visualized. There is a hematoma in the right groin measuring at least 6 cm x 3.6 cm. The hematoma was not measured in 2 perpendicular planes, and extends beyond the [id number]. Comments on the Left: A limited duplex study was done of the proximal veins of the left lower extremity. All veins visualized are freely compressible without evidence of internal echogenicity. Flow is spontaneous and phasic throughout. No evidence of acute or chronic thrombus is seen in any of the vessels visualized. Impression: No evidence of acute or chronic deep venous thrombosis in the right lower extremity. Large right groin hematoma noted.
== END 2017-11-11 17:42 | disposition home or self-care (01) ==
LOC: ED 08:17
DX: M79.651 Pain in right thigh (principal); I10 Essential (primary) hypertension; I50.9 Heart failure, unspecified; E11.9 Type 2 diabetes mellitus without complications; J45.909 Unspecified asthma, uncomplicated
CPT/HCPCS: 36415; 80048; 85025; 85610; 85730